=== PATIENT | female | born 1960 | race Caucasian/White ===

== ENCOUNTER → 2021-01-24 10:45 | Outpatient (BNVA) | payer MEDICARE, OTHER, MEDICAID, SELFPAY | PROVIDERS: PCP Family Medicine; Visit Provider Anesthesiology | DX: M17.12 Unilateral primary osteoarthritis, left knee (principal); E66.01 Morbid (severe) obesity due to excess calories; Z68.41 Body mass index [BMI] 40.0-44.9, adult | CPT/HCPCS: 99202 ==

== ENCOUNTER 2021-03-08 06:24 | Outpatient (REF) | payer MEDICARE, OTHER, MEDICAID, SELFPAY ==
--- NOTE | ~2021-03-08 | FL_ITS ---
EXAMINATION: XR FLUOROSCOPY WITH IMAGES CLINICAL INFORMATION: Primary osteoarthritis of left knee COMPARISON: None. TECHNIQUE: Fluoroscopy performed by Dr. Franklin. Fluoroscopy time: 0.3 minutes DAP: 3.13 Gycm2 Images: 1 image is saved (lateral view of knee) FL/FL guidance in treatment room FINDINGS AND IMPRESSION: The visualized bones have normal alignment. The lateral view of the left knee shows thin needles projecting over the region of the distal femur and proximal tibia. Please refer to the procedure report.
== END 2021-03-08 06:25 | disposition home or self-care (01) ==
LOC: HO.RADIR 06:24
PROVIDERS: Visit Provider Anesthesiology
DX: M17.12 Unilateral primary osteoarthritis, left knee (principal)
CPT/HCPCS: 64454

== ENCOUNTER 2021-03-15 08:58 | Outpatient (REF) | payer MEDICARE, OTHER, MEDICAID, SELFPAY ==
--- NOTE | ~2021-03-15 | XR_ITS ---
EXAMINATION: XR HAND, RIGHT CLINICAL INFORMATION: Pain in right wrist. COMPARISON: None TECHNIQUE: PA, lateral, and oblique views of the right hand. FINDINGS: The bones and soft tissues are normal. No fracture. Alignment is anatomic. Joint spaces are maintained. No erosions or soft tissue calcifications. XR/XR hand RT min 3V IMPRESSION: Normal right hand.
== END 2021-03-15 08:59 | disposition home or self-care (01) ==
LOC: HO.HOSX 08:58
PROVIDERS: Visit Provider Orthopaedic Surgery
DX: M67.441 Ganglion, right hand (principal)
CPT/HCPCS: 73130; 99202

== ENCOUNTER → 2021-03-16 10:18 | Outpatient (BNVA) | payer MEDICARE, OTHER, MEDICAID, SELFPAY | PROVIDERS: PCP Family Medicine; Visit Provider Anesthesiology | DX: M17.12 Unilateral primary osteoarthritis, left knee (principal); E66.01 Morbid (severe) obesity due to excess calories | CPT/HCPCS: 99212 ==

== ENCOUNTER 2021-04-07 08:38 | Outpatient (REF) | payer MEDICARE, OTHER, MEDICAID, SELFPAY ==
--- NOTE | ~2021-04-07 | XR_ITS ---
EXAMINATION: 1. STANDING RADIOGRAPHS OF THE BILATERAL KNEES. 2. LATERAL AND PATELLAR SUNRISE VIEWS OF THE LEFT KNEE. CLINICAL INFORMATION: Pain COMPARISON: None TECHNIQUE: Standing AP views of both knees were obtained in addition to 2 additional views of the left knee. FINDINGS: No fracture or dislocation of the left knee. Trace suprapatellar joint fluid of the left knee. There is mild narrowing of the medial joint space height of the left knee. Tiny tricompartmental marginal osteophytes are noted. No focal soft tissue swelling of the anterior knee. Standing AP view of the right knee demonstrates minimal narrowing of the medial joint space height with tiny osteophyte of the lateral joint compartment. XR/XR knee standing BI IMPRESSION: Mild degenerative changes of the left knee, primarily involving the medial compartment.
--- NOTE | ~2021-04-07 | XR_ITS ---
EXAMINATION: 1. STANDING RADIOGRAPHS OF THE BILATERAL KNEES. 2. LATERAL AND PATELLAR SUNRISE VIEWS OF THE LEFT KNEE. CLINICAL INFORMATION: Pain COMPARISON: None TECHNIQUE: Standing AP views of both knees were obtained in addition to 2 additional views of the left knee. FINDINGS: No fracture or dislocation of the left knee. Trace suprapatellar joint fluid of the left knee. There is mild narrowing of the medial joint space height of the left knee. Tiny tricompartmental marginal osteophytes are noted. No focal soft tissue swelling of the anterior knee. Standing AP view of the right knee demonstrates minimal narrowing of the medial joint space height with tiny osteophyte of the lateral joint compartment. XR/XR knee LT 2V IMPRESSION: Mild degenerative changes of the left knee, primarily involving the medial compartment.
== END 2021-04-07 08:39 | disposition home or self-care (01) ==
LOC: HO.HOSX 08:38
PROVIDERS: Visit Provider Orthopaedic Surgery
DX: M17.12 Unilateral primary osteoarthritis, left knee (principal)
CPT/HCPCS: 73560; 73565; 99202

== ENCOUNTER 2021-04-11 09:49 | Day surgery (SDC) | payer MEDICARE, OTHER, MEDICAID, SELFPAY ==
[2021-04-11 09:53] VITALS: BMI 44.6
[2021-04-11 10:00] VITALS: BP 141/84; PULSE 103; RESP 18; TEMP 36.1; O2SAT 97
[2021-04-11 11:44] VITALS: BP 148/89; PULSE 93; RESP 18; TEMP 36.6; O2SAT 97
--- NOTE | 2021-04-11 12:10 | P.OP_ITS ---
Operative Note Operative Note Date of Service: 04/11/21 Narrative: Operative Note Preop diagnosis: 1. [ ] DIP joint osteoarthritis and mucous cyst Postop diagnosis: 1. same Procedure: 1. [ ] mucous cyst excision 2. [ ] DIP joint arthrotomy and excision of osteophytes. Surgeon: Noreen Kohler MD Anesthesia: Digital block using 1% lidocaine with epinephrine Findings: mucous cyst, [ ] EBL: Less than 5 mL Tourniquet time: None Specimens: None Complications: None Disposition: Brought to recovery room in stable condition Plan: Follow-up for 7-10 days for wound check and suture removal Indications: The patient is 60 years old, with right index finger D IP joint osteoarthritis and a mucous cyst that has been unresponsive to nonoperative management. The risks and benefits of operative treatment including but not limited to risk of damage to blood vessels, nerves, tendons, infection, persistent pain, persistent symptoms, recurrence or possible need for additional surgery were discussed with the patient and the patient wishes to pro ceed with surgery. Procedure: Once consent was obtained a digital block was performed in the preop area using a combination of 1% lidocaine with epinephrine. The patient was then brought back to the operating suite and placed on the operative table in supine position. A tourniquet was applied to the proximal aspect of the right upper extremity and the limb was prepped and draped in a standard surgical fashion. Once assured that we had a good block, an L-shaped incision was made over the dorsal aspect of the right index finger distal phalanx. The incision was made through the skin to the subcutaneous tissues using a #15 blade. Careful dissection was made down to the level of the mucous cyst and extensor mechanism using iris scissors. the mucous cyst measured about 3 mm in diameter, was distal to the D IP joint and just radial of the midline. The cyst was filled with clear viscous fluid consistent with a ganglion. It was dissected free from the surrounding tissues and removed from the finger. An arthrotomy was performed on the Radial side of the extensor mechanism at the D IP joint. The periarticular osteophytes were excised using a rongeur. Once satisfied, the wound was copiously irrigated with normal saline and hemostasis was obtained with a brief period of local pressure. The skin edges were reapproximated with some 5.0 Prolene suture material and a sterile dressing was applied. The patient appears to have tolerated the procedure well and with no complications. All digits were well vascularized at the conclusion of the case.
--- NOTE | 2021-04-11 12:10 | MHC.SHP ---
Pre-Procedural Eval Section A Date of Service: 04/11/21 The patient is an INPATIENT: No Changes since office visit: No Cold of Flu in the past 2 weeks, No New Medical Problems, No Changes in Medication and No Patient answered all questions The History & Physical has been completed within 30 days and I have reviewed it.: Yes Section B Chief Complaint: ganglion Allergies: Allergies Allergy/AdvReac Type Severity Reaction Status Date / Time tetracycline [TETRACYCLINE] Allergy Severe SYNCOPE, Verified 03/16/21 10:47 faintning spells Sulfa (Sulfonamide Allergy Unknown VOMITING Verified 03/16/21 10:47 Antibiotics) [SULFA (SULFONAMIDE ANTIBIOTICS)] Plan I have reviewed the history and physical and performed a pertinent physical examination on my patient. No changes have occurred unless specified.
== END 2021-04-11 12:04 | disposition home or self-care (01) ==
PROVIDERS: PCP Family Medicine; Visit Provider Orthopaedic Surgery
PROC: (CPT 26160; principal; 2021-04-11 11:10)
DX: M67.441 Ganglion, right hand (principal); M19.041 Primary osteoarthritis, right hand; E66.01 Morbid (severe) obesity due to excess calories; Z68.41 Body mass index [BMI] 40.0-44.9, adult; Z88.2 Allergy status to sulfonamides; Z88.1 Allergy status to other antibiotic agents
CPT/HCPCS: 26160

== ENCOUNTER 2021-04-12 06:07 | Outpatient (REF) | payer MEDICARE, OTHER, MEDICAID, SELFPAY | END 2021-04-12 06:08 | disposition home or self-care (01) | LOC: HO.RADIR 06:07 | PROVIDERS: Visit Provider Anesthesiology | DX: Z13.89 Encounter for screening for other disorder (principal) ==

== ENCOUNTER → 2021-04-26 12:07 | Outpatient (BNVA) | payer MEDICARE, OTHER, MEDICAID, SELFPAY | PROVIDERS: PCP Family Medicine; Visit Provider Physician Assistant | DX: Z48.89 Encounter for other specified surgical aftercare (principal); Z87.39 Personal history of other diseases of the musculoskeletal system and connective tissue | CPT/HCPCS: 99212 ==

== ENCOUNTER → 2021-05-24 14:30 | Outpatient (BNVA) | payer MEDICARE, OTHER, SELFPAY | PROVIDERS: PCP Family Medicine; Visit Provider Orthopaedic Surgery | DX: Z47.89 Encounter for other orthopedic aftercare (principal); Z87.39 Personal history of other diseases of the musculoskeletal system and connective tissue | CPT/HCPCS: 99212 ==

== ENCOUNTER 2021-07-21 12:30 | Outpatient (REF) | payer MEDICARE, OTHER, MEDICAID, SELFPAY ==
--- NOTE | ~2021-07-21 | XR_ITS ---
EXAMINATION: XR SHOULDER, LEFT CLINICAL INFORMATION: Left shoulder pain. COMPARISON: None TECHNIQUE: AP, scapular Y, and axillary views of the left shoulder. FINDINGS: Mild glenohumeral joint space narrowing with small marginal osteophytes. Small acromioclavicular marginal osteophytes. Prominent subacromial spurs. No acute fracture or dislocation. No lytic or blastic osseous lesion. XR/XR shoulder LT min 2V IMPRESSION: Moderate glenohumeral osteoarthritis. Mild acromioclavicular osteoarthritis with prominent subacromial spurs.
== END 2021-07-21 12:31 | disposition home or self-care (01) ==
LOC: HO.HOSX 12:30
PROVIDERS: Visit Provider Orthopaedic Surgery
DX: M75.52 Bursitis of left shoulder (principal)
CPT/HCPCS: 20600; 20605; 20610; 73030; 99212; J1100

== ENCOUNTER 2023-02-13 14:57 | Outpatient (AMB) | payer MEDICARE, OTHER, SELFPAY ==
--- NOTE | 2023-02-13 14:59 | A.OFFVIS_ITS ---
Intake Intake Visit Reasons: New Prob- left finger cyst Intake Note: Suze 62 yr old female presents today for a new problem visit for left index finger. States she has a small bump she noticed it about 3-4 months ago with slight increase in size. Denies numbness and tingling. S/P Right Idex Finger Mucous Cyst Exc. 04/11/21 AR. Allergies tetracycline [TETRACYCLINE] Allergy (Severe, Verified 02/13/23 15:09) SYNCOPE, faintning spells Sulfa (Sulfonamide Antibiotics) [SULFA (SULFONAMIDE ANTIBIOTICS)] Allergy (Unknown, Verified 02/13/23 15:09) VOMITING HPI New Prob- left finger cyst HPI Details Suze is a 62 year old right hand dominant woman who presents with complaints of a left index finger mass. She says this has been present for ~4 months and has slightly increased in size. She says it tends to hurt only when she strikes it against an object. She denies any numbness or tingling. She is S/P right index finger DIP joint mucous cyst excision, DOS: 04/01/21 [facility] Medical History History of kidney infection Morbid obesity Osteoarthritis of left knee Surgical History History of kidney surgery History of partial hysterectomy Hx laparoscopic cholecystectomy Social History Alcohol intake: never Patient Tobacco Use Status: Never used Tobacco Second Hand Smoke Exposure: No Current occupational status: unemployed and retired Current occupation: right handed Review of Systems Const All systems reviewed & are unremarkable except as noted in HPI and below Physical Exam Const General: no acute distress and alert Orientation/consciousness: patient oriented x3 Neuro General: patient oriented x3 Extrem Other: Evaluation of Left Upper Extremity: The patient is alert, oriented, and in no acute distress Neuro: Median, Ulnar, Radial nerves motor and sensory intact and sensation is normal to the tips of all digits Vascular: Cap refill brisk ROM: She can make a fist and extend all her digits She has a mass , consistent with a small mucous cyst, on the dorsal radial aspect of her left index finger, just distal to the DIP joint. This measures ~3mm in diameter. Psych Appearance: grossly normal Affect: normal affect Attitude: cooperative Assessment & Plan Assessment & Plan (1) Mucous cyst of digit of left hand: Code(s): M67.442 - Ganglion, left hand Plan Assessment & Plan: 1. Left index finger mucous cyst Measuring ~3mm in diameter, on the dorsal radial aspect just distal to the DIP joint I educated her about this condition I discussed operative and non-operative treatment options The patient would like to proceed with surgery The risks and benefits of operative treatment were discussed with the patient and the patient wishes to proceed with surgery. These risks include, but are not limited to risk of damage to blood vessels, nerves, tendons, infection, recurrence, incomplete relief of preoperative symptoms, persistent pain, possible need for further surgery and the risks associated with regional blocks and anesthesia. The plan is to take the patient to the operating room sometime in the next few weeks for the following procedures: 1. Left index finger excision of mass, under local All of the preoperative paperwork including the consent was filled out today. All the patient's questions were answered. The patient understands that they will be contacted by our surgery tech soon to schedule this procedure She denies Diabetes, blood thinners, asthma, heart, lung, kidney issues Scribed for Noreen Kohler MD by Navjot Cabrera, durable medical equipment technician, on 02/13/23 at 3:40 PM, EST. Coding Level of Care Code Est Pt Level 4 (03470) Diagnoses Mucous cyst of digit of left hand M67.442
== END 2023-02-13 15:49 | disposition home or self-care (01) ==
PROVIDERS: PCP Family Medicine; Visit Provider Orthopaedic Surgery
DX: M67.442 Ganglion, left hand (principal)
CPT/HCPCS: 99214

== ENCOUNTER → 2023-02-13 14:57 | Outpatient (BNVA) | payer MEDICARE, OTHER, MEDICAID, SELFPAY | PROVIDERS: PCP Family Medicine; Visit Provider Orthopaedic Surgery | DX: M67.442 Ganglion, left hand (principal) | CPT/HCPCS: 99212 ==

== ENCOUNTER 2023-07-18 14:23 | Outpatient (AMB) | payer MEDICARE, MEDICAID, OTHER, SELFPAY ==
--- NOTE | 2023-07-18 14:31 | A.OFFVIS_ITS ---
Intake Intake Visit Reasons: OV-left finger injury/pain Intake Note: Suze 62 yr old female presents today for her left index finger. States she was suppose to have surgery on her Lt IF Cyst Exc on 05/10/23 but cancelled it because it was feeling better after she accidentally banged her finger on her fridge, and now the pain has come back and wants to be checked again States she is having more pain. Allergies tetracycline [TETRACYCLINE] Allergy (Severe, Verified 07/18/23 14:34) SYNCOPE, faintning spells Sulfa (Sulfonamide Antibiotics) [SULFA (SULFONAMIDE ANTIBIOTICS)] Allergy (Unknown, Verified 07/18/23 14:34) VOMITING HPI OV-left finger injury/pain HPI Details Suze is a 62 year old right hand dominant woman who returns with complaints of worsening left index finger pain. She has a mucous cyst on her left index finger DIP joint, which was scheduled for removal on . She cancelled this surgery as her finger was feeling better after she struck it with the fridge door. She now complains that her pain has returned and she would like to discuss treatment options. This mass has been present for ~9 months now. She denies any numbness or tingling. [facility] Medical History History of kidney infection Morbid obesity Osteoarthritis of left knee Surgical History History of kidney surgery History of partial hysterectomy Hx laparoscopic cholecystectomy Social History Alcohol intake: never Patient Tobacco Use Status: Never used Tobacco Second Hand Smoke Exposure: No Current occupational status: unemployed and retired Current occupation: right handed Physical Exam Const General: no acute distress and alert Orientation/consciousness: patient oriented x3 Neuro General: patient oriented x3 Extrem Other: Evaluation of Left Upper Extremity: The patient is alert, oriented, and in no acute distress Neuro: Median, Ulnar, Radial nerves motor and sensory intact and sensation is normal to the tips of all digits Vascular: Cap refill brisk ROM: She can make a fist and extend all her digits She has a small mass, consistent with a small mucous cyst, on the dorsal radial aspect of her left index finger, just distal to the DIP joint. This measures ~3mm in diameter. This was rather flat, and really only visible when her finger was brought into flexion and the skin was stretched over it. She did have some mild tenderness right over this small mass. Psych Appearance: grossly normal Affect: normal affect Attitude: cooperative Assessment & Plan Assessment & Plan (1) Mucous cyst of digit of left hand: Code(s): M67.442 - Ganglion, left hand Plan Assessment & Plan: 1. Left index finger likely reoccurrence of mucous cyst Measuring ~3mm in diameter, on the dorsal radial aspect just distal to the DIP joint Rather flat at this point and Difficult to visualize until the fingers brought into flexion. I educated her about this condition I discussed operative and non-operative treatment options This is a small mass that would be difficult to remove operatively at this time I recommend she massage over her mass to reduce the risk of hypersensitivity If her mass increases in size she can follow up to discuss operative treatment options. She will follow up in 6-8 weeks to see how she is doing Scribed for Noreen Kohler MD by Navjot Cabrera, medical technologist chief, on 07/18/23 at 2:40 PM, EST. Coding Level of Care Code Est Pt Level 3 (62677) Diagnoses Mucous cyst of digit of left hand M67.442
== END 2023-07-18 14:46 | disposition home or self-care (01) ==
PROVIDERS: PCP Family Medicine; Visit Provider Orthopaedic Surgery
DX: M67.442 Ganglion, left hand (principal)
CPT/HCPCS: 99213

== ENCOUNTER → 2023-07-18 14:23 | Outpatient (BNVA) | payer MEDICARE, MEDICAID, OTHER, SELFPAY | PROVIDERS: PCP Family Medicine; Visit Provider Orthopaedic Surgery | DX: M67.442 Ganglion, left hand (principal) | CPT/HCPCS: 99212 ==

== ENCOUNTER 2023-09-11 15:40 | Outpatient (AMB) | payer MEDICARE, MEDICAID, OTHER, SELFPAY ==
--- NOTE | 2023-09-11 15:50 | MHC.OFFVIS ---
Intake Visit Reasons: OV-left index finger mucous cyst Intake Note: Suze 63 yr old female presents today for her follow up visit for her left index finger mucous cyst. States her cyst burst about 2 weeks ago. She did not see any thing drained out but now her cyst has grown back and she has noticed it has increase in size. She would like to discuss surgery. Allergies tetracycline [TETRACYCLINE] Allergy (Severe, Verified 09/11/23 15:57) SYNCOPE, faintning spells Sulfa (Sulfonamide Antibiotics) [SULFA (SULFONAMIDE ANTIBIOTICS)] Allergy (Unknown, Verified 09/11/23 15:57) VOMITING HPI HPI OV-left index finger mucous cyst: Details: Suze is a 62 year old right hand dominant woman who returns to discuss her left index finger mucous cyst She has a mucous cyst on her left index finger DIP joint, which was scheduled for removal on 05/10/23. She cancelled this surgery as her finger was feeling better after she struck it with the fridge door. She says her cyst burst ~2 weeks ago again, and has once again returned. She complains of pain and wants to discuss surgery. This mass first appeared in ~09/2022. She denies any numbness or tingling. [facility] Medical History History of kidney infection Morbid obesity Osteoarthritis of left knee Surgical History History of kidney surgery History of partial hysterectomy Hx laparoscopic cholecystectomy Social History Alcohol intake: never Patient Tobacco Use Status: Never used Tobacco Second Hand Smoke Exposure: No Current occupational status: unemployed and retired Current occupation: right handed Physical Exam Const General: no acute distress and alert Orientation/consciousness: patient oriented x3 Neuro General: patient oriented x3 Extrem Other: Evaluation of Left Upper Extremity: The patient is alert, oriented, and in no acute distress Neuro: Median, Ulnar, Radial nerves motor and sensory intact and sensation is normal to the tips of all digits Vascular: Cap refill brisk ROM: She can make a fist and extend all her digits She has a small mass, consistent with a small mucous cyst, on the dorsal radial aspect of her left index finger, just distal to the DIP joint. This measures ~3-4mm in diameter. She did have some mild tenderness right over this small mass. Psych Appearance: grossly normal Affect: normal affect Attitude: cooperative Assessment & Plan Assessment & Plan (1) Mucous cyst of digit of left hand: Code(s): M67.442 - Ganglion, left hand Category: Medical Plan Assessment & Plan: 1. Left index finger likely reoccurrence of mucous cyst Measuring ~3-4mm in diameter, on the dorsal radial aspect just distal to the DIP joint I educated her about this condition I discussed operative and non-operative treatment options The patient would like to proceed with surgery The risks and benefits of operative treatment were discussed with the patient and the patient wishes to proceed with surgery. These risks include, but are not limited to risk of damage to blood vessels, nerves, tendons, infection, recurrence, incomplete relief of preoperative symptoms, persistent pain, possible need for further surgery and the risks associated with regional blocks and anesthesia. The plan is to take the patient to the operating room sometime in the next few weeks for the following procedures: 1. Left index finger mucous cyst excision, under local All of the preoperative paperwork including the consent was reviewed today. All the patient's questions were answered. The patient understands that they will be contacted by our corset maker soon to schedule this procedure She denies Diabetes, blood thinners, asthma, heart, lung, kidney issues Scribed for Noreen Kohler MD by Navjot Cabrera, medical driver, on 09/11/23 at 3:55 PM, EST. Coding Level of Care Code Est Pt Level 4 (34537) Diagnoses Mucous cyst of digit of left hand M67.442
== END 2023-09-11 16:21 | disposition home or self-care (01) ==
PROVIDERS: PCP Family Medicine; Visit Provider Orthopaedic Surgery
DX: M67.442 Ganglion, left hand (principal)
CPT/HCPCS: 99214

== ENCOUNTER → 2023-09-11 15:40 | Outpatient (BNVA) | payer MEDICARE, MEDICAID, OTHER, SELFPAY | PROVIDERS: PCP Family Medicine; Visit Provider Orthopaedic Surgery | DX: M67.442 Ganglion, left hand (principal) | CPT/HCPCS: 99212 ==

== ENCOUNTER 2023-10-04 08:57 | Day surgery (SDC) | payer MEDICARE, OTHER, MEDICAID, SELFPAY ==
[2023-10-04 09:08] VITALS: BMI 46.5
--- NOTE | 2023-10-04 10:11 | MHC.SHP ---
Pre-Procedural Eval Section A - 24 Hr Update-Section A only Date of Service: 10/04/23 The patient is an INPATIENT: No Changes since office visit: No Cold of Flu in the past 2 weeks, No New Medical Problems, No Changes in Medication and No Patient answered all questions The patient has been examined within 24 hours of the surgical procedure. The History & Physical has been completed within 30 days and I have reviewed it.: Yes Section B - Complete if H&P > 30 days Chief Complaint: Localized swelling, mass and lump, left upper limb Allergies: Allergies Allergy/AdvReac Type Severity Reaction Status Date / Time tetracycline [TETRACYCLINE] Allergy Severe SYNCOPE, Verified 10/04/23 09:18 faintning spells Sulfa (Sulfonamide AdvReac Unknown VOMITING Verified 10/04/23 09:18 Antibiotics) [SULFA (SULFONAMIDE ANTIBIOTICS)] morphine AdvReac Vomiting Verified 10/04/23 09:19 Exam Exam Comment: Left index finger mucous cyst Plan Diagnosis/Plan: Unchanged I have reviewed the history and physical and performed a pertinent physical examination on my patient. No changes have occurred unless specified. Time Spent With Patient Time: Total time managing care of this patient today ____ minutes.
--- NOTE | 2023-10-04 10:11 | W.PM.OPN ---
Operative Note Operative Note Date of Service: 10/04/23 Narrative: Operative Note Preop diagnosis: 1. Left index finger DIP joint osteoarthritis and mucous cyst Postop diagnosis: 1. same Procedure: 1. Left index finger mucous cyst excision 2. Left index finger DIP joint arthrotomy and excision of osteophytes. Surgeon: Noreen Kohler MD Anesthesia: Digital block using 1% lidocaine with epinephrine Findings: mucous cyst EBL: Less than 5 mL Tourniquet time: None Specimens: None Complications: None Disposition: Brought to recovery room in stable condition Plan: Follow-up for 7-10 days for wound check and suture removal, and to check pathology Indications: The patient is 63 years old, with left index finger D IP joint osteoarthritis and a mucous cyst that has been unresponsive to nonoperative management. The risks and benefits of operative treatment including but not limited to risk of damage to blood vessels, nerves, tendons, infection, persistent pain, persistent symptoms, recurrence or possible need for additional surgery were discussed with the patient and the patient wishes to proceed with surgery. Procedure: Once consent was obtained a digital block was performed in the preop area using a combination of 1% lidocaine with epinephrine. The patient was then brought back to the operating suite and placed on the operative table in supine position. A tourniquet was applied to the proximal aspect of the left upper extremity and the limb was prepped and draped in a standard surgical fashion. Once assured that we had a good block, an L-shaped incision was made over the dorsal aspect of the left index finger distal phalanx. The incision was made through the skin to the subcutaneous tissues using a #15 blade. Careful dissection was made down to the level of the mucous cyst and extensor mechanism using iris scissors. I made an ulnarly based flap, and elevated it to expose the mucous cyst. The cyst was approximately 6 mm in diameter and filled with clear viscous fluid consistent with a ganglion. It was dissected free from the surrounding tissues and removed from the finger. An arthrotomy was performed on the radial side of the extensor mechanism at the D IP joint. The periarticular osteophytes were excised using a rongeur. Once satisfied, the wound was copiously irrigated with normal saline and hemostasis was obtained with a brief period of local pressure. The skin edges were reapproximated with some 5.0 Prolene suture material and a sterile dressing was applied. The patient appears to have tolerated the procedure well and with no complications. All digits were well vascularized at the conclusion of the case.
[2023-10-04 11:41] VITALS: BP 148/59; PULSE 60; RESP 20; O2SAT 95
== END 2023-10-04 11:48 | disposition home or self-care (01) ==
PROVIDERS: PCP Family Medicine; Visit Provider Orthopaedic Surgery
PROC: (CPT 26160; principal; 2023-10-04 10:10)
DX: M67.442 Ganglion, left hand (principal); M19.042 Primary osteoarthritis, left hand; Z88.8 Allergy status to other drugs, medicaments and biological substances
CPT/HCPCS: 26160; 88304; J0171

== ENCOUNTER → 2023-10-04 08:57 | Outpatient (BNV) | payer MEDICARE, OTHER, MEDICAID, SELFPAY | PROVIDERS: PCP Family Medicine; Visit Provider Orthopaedic Surgery | DX: M67.442 Ganglion, left hand (principal); M19.042 Primary osteoarthritis, left hand | CPT/HCPCS: 26160 ==

== ENCOUNTER 2023-10-17 13:39 | Outpatient (AMB) | payer MEDICARE, MEDICAID, OTHER, SELFPAY ==
--- NOTE | 2023-10-17 13:43 | MHC.OFFVIS ---
Vital Signs 10/17/23 13:46 Handedness Right Intake Visit Reasons: PO LT IF mucous exc 10/04/23 AR Intake Note: Suze 63 year old right hand dominant female presents today for her post operative visit for her left index finger mucous exc 10/04/23 AR. States she has mild numbness on finger tip but is doing well over all. Dressing was removed 5 days after surgery and states she has kept her finger clean. Sutures removed and steri strips applied. Allergies tetracycline [TETRACYCLINE] Allergy (Severe, Verified 10/17/23 13:45) SYNCOPE, faintning spells oxycodone Adverse Reaction (Intermediate, Verified 10/17/23 13:45) Stomach Upset Sulfa (Sulfonamide Antibiotics) [SULFA (SULFONAMIDE ANTIBIOTICS)] Adverse Reaction (Unknown, Verified 10/17/23 13:45) VOMITING morphine Adverse Reaction (Verified 10/17/23 13:45) Vomiting HPI HPI PO LT IF mucous exc 10/04/23 AR: Details: Suze is a 62 year old right hand dominant woman who returns S/P left index finger mucous cyst excision, DIP joint arthrotomy, & excision of osteophytes, DOS: 10/04/23. She says she is doing well and denies any pain. She reports having some numbness in the central pad of the finger, that seems to be new.. She says she had an injury as a child when her hand went through a glass window. [facility] Medical History History of kidney infection Morbid obesity Osteoarthritis of left knee Surgical History History of kidney surgery History of partial hysterectomy Hx laparoscopic cholecystectomy Social History Alcohol intake: never Patient Tobacco Use Status: Never used Tobacco Second Hand Smoke Exposure: No Current occupational status: unemployed and retired Current occupation: right handed Review of Systems Const All systems reviewed & are unremarkable except as noted in HPI and below Physical Exam Const General: no acute distress and alert Orientation/consciousness: patient oriented x3 Neuro General: patient oriented x3 Extrem Other: The patient was alert oriented and in no acute distress The incision is healing well with no erythema drainage or evidence of infection. Sutures removed and Steri-Strips applied She can make a fist and extend all her digits Numbness to the central tip of the index finger, with more normal sensation to the volar radial and volar ulnar pad of the finger. This seems to be new to her. She says it does not bother her a lot.. Normal sensation to all other digits. Cap refill is brisk Pathology report 10/04/23 Diagnosis Soft tissue, left index finger cyst, excision: Fibrovascular tissue with cystic and myxoid degeneration, consistent with digital mucous (myxoid) cyst Psych Appearance: grossly normal Affect: normal affect Attitude: cooperative Assessment & Plan Assessment & Plan (1) Mucous cyst of digit of left hand: Code(s): M67.442 - Ganglion, left hand Category: Medical Plan Assessment & Plan: 1. Left index finger mucous cyst, S/P excision, DIP joint arthrotomy & excision of osteophytes DOS: 10/04/23 The patient appears to be doing well post-operatively I educated her about the post-operative course I explained the signs and symptoms of infection, if the patient develops any new or worsening erythema, drainage, pain, or warmth they should contact the clinic or attend the ED. I discussed activity modifications, she is to lift nothing heavier than a cellphone for the next two weeks She will perform gentle ROM exercises at home She should avoid any underwater activities for the next 5 days She should gently massage about the incision site to reduce the risk of hypersensitivity She can follow up prn Scribed for Noreen oKhler MD by Navjot Cabrera, rishabh craft, on 10/17/23 at 1:55 PM, EST. Scribe Plan - Not visible on output: Scribed for Noreen Kohler MD by rishabh Delcid scribe, on [ ] at [ ], EST. Coding Level of Care Code Global (52839) Diagnoses Mucous cyst of digit of left hand M67.442
== END 2023-10-17 14:01 | disposition home or self-care (01) ==
PROVIDERS: PCP Family Medicine; Visit Provider Orthopaedic Surgery
DX: M67.442 Ganglion, left hand (principal)
CPT/HCPCS: 99024

== ENCOUNTER → 2023-10-17 13:39 | Outpatient (BNVA) | payer MEDICARE, MEDICAID, OTHER, SELFPAY | PROVIDERS: PCP Family Medicine; Visit Provider Orthopaedic Surgery | DX: Z47.89 Encounter for other orthopedic aftercare (principal); Z98.890 Other specified postprocedural states | CPT/HCPCS: 99212 ==

== ENCOUNTER 2024-01-26 20:03 | Observation (INO) | payer MEDICARE, OTHER, MEDICAID, SELFPAY ==
--- NOTE | ~2024-01-26 | MR_ITS ---
EXAMINATION: MR BRAIN WITHOUT CONTRAST CLINICAL INFORMATION: Diplopia COMPARISON: CTA head and neck on 01/26/2024 TECHNIQUE: MRI of the brain was obtained using routine sequences without contrast. FINDINGS: No acute intracranial hemorrhage or infarct. No edema, midline shift or hydrocephalus. No acute extra-axial fluid collections. The osseous structures are unremarkable. The pituitary gland, pineal gland and remaining midline structures are unremarkable. No orbital pathology. The paranasal sinuses and mastoid air cells are clear. MR/MR head/brain wo con IMPRESSION: Unremarkable MRI brain. No acute intracranial abnormality. Electronically signed by: Koby Minor MD 01/27/2024 10:37 AM EDT
--- NOTE | ~2024-01-26 | CT_ITS ---
EXAMINATION: CTA NECK WITH CONTRAST (STROKE) CTA BRAIN WITH CONTRAST (STROKE) CLINICAL INFORMATION: Suspect acute stroke. COMPARISON: None available. TECHNIQUE: CTA of the head and neck was performed in the axial plane from the mediastinum to the skull vertex using 70 mL Omnipaque 350 intravenous contrast. Additional reformatted multiplanar images including maximum intensity projection MIP images are generated on the CT workstation. This CT examination was performed using dose optimization techniques as appropriate, variously including the following: *Automated exposure control *Adjustment of mA and/or kV according to patient size (this includes techniques or standardized protocols for targeted exams where dose is matched to indication/reason for exam; i.e. extremities or head) *Use of iterative reconstruction technique DLP: 1503 mGy-cm FINDINGS: The degree of stenosis determined by criteria similar to NASCET. CTA NECK: Three-vessel aortic arch. The innominate and bilateral subclavian arteries are patent. The origins and cervical segments of the common carotid arteries as well as the common carotid artery bifurcations are patent. The cervical segments of the internal carotid arteries are also patent bilaterally. Nondominant right vertebral artery. The origins and cervical segments of the vertebral arteries are patent bilaterally. No hemodynamically significant stenosis, dissection, or aneurysm. The visualized branches of the external carotid arteries are unremarkable. CTA HEAD: Mild to moderate atherosclerotic calcifications of the bilateral carotid siphons. Anterior circulation: The petrous, cavernous, supraclinoid segments of the internal carotid arteries are patent bilaterally. The major branches of the anterior and middle cerebral arteries as well as anterior communicating artery complex are patent. No large vessel occlusion, saccular aneurysm, or dissection. Posterior circulation: The intracranial vertebral arteries are patent bilaterally. The basilar artery is normal in caliber and course. The posterior cerebral and superior cerebellar arteries arise normally from the basilar summit. No aneurysm. On delayed imaging, the venous structures demonstrate normal contrast opacification. No filling defect. No abnormal intraparenchymal enhancement. Soft tissues: No suspicious neck mass or cervical adenopathy. Lungs: Clear. Bones: No acute osseous abnormality. No lytic or blastic osseous lesions. Multilevel degenerative changes of the visualized spine. CT/CT angio head neck stroke IMPRESSION: CTA head demonstrates no large vessel occlusion, saccular aneurysm, or dissection. CTA neck demonstrates no hemodynamically significant stenosis, dissection, or aneurysm. Electronically signed by: Koby Minor MD 01/26/2024 09:23 PM EDT
--- NOTE | ~2024-01-26 | XR_ITS ---
EXAMINATION: XR CHEST CLINICAL INFORMATION: Stroke symptoms COMPARISON: 04/19/2018 TECHNIQUE: Frontal view of the chest was obtained. FINDINGS: There is some minimal atelectasis seen at the left lung base but otherwise, no significant abnormality is noted involving the heart, lungs, mediastinum, bony thorax or soft tissues. XR/XR chest 1V IMPRESSION: No acute intrathoracic disease. Electronically signed by: Dat Richards MD 01/26/2024 09:49 PM EDT RP
--- NOTE | ~2024-01-26 | CT_ITS ---
EXAMINATION: CT HEAD WITHOUT CONTRAST (STROKE PROTOCOL) CLINICAL INFORMATION: Stroke protocol. Altered mental status. COMPARISON: None available. TECHNIQUE: Contiguous axial imaging was performed from the skull base to vertex without intravenous administration of contrast. This CT examination was performed using dose optimization techniques as appropriate, variously including the following: *Automated exposure control *Adjustment of mA and/or kV according to patient size (this includes techniques or standardized protocols for targeted exams where dose is matched to indication/reason for exam; i.e. extremities or head) *Use of iterative reconstruction technique DLP: 731 mGy-cm FINDINGS: No intracranial hemorrhage, large infarction, or mass lesion is seen. No extra-axial collection is appreciated. The ventricles are normal in size and configuration without evidence of hydrocephalus. The visualized paranasal sinuses and mastoid air cells are clear. CT/CT head for stroke IMPRESSION: No acute intracranial finding. Dr Smith was directly informed of the findings by telephone at 8:25 PM on January 26, 2024. Electronically signed by: Roque Green MD 01/26/2024 08:25 PM EDT
--- NOTE | 2024-01-26 20:10 | ECG_ITS ---
Test Reason : ?STROKE Blood Pressure : / mmHG Vent. Rate : 094 BPM Atrial Rate : 094 BPM P-R Int : 164 ms QRS Dur : 080 ms QT Int : 366 ms P-R-T Axes : 066 022 049 degrees QTc Int : 457 ms Normal sinus rhythm Normal ECG When compared with ECG of 21-JUL-2018 17:41, T wave inversion no longer evident in Anterior leads Referred By: Toni Smith Electronically Signed By:CRISTIAN ARROYO
[2024-01-26 20:17] VITALS: BP 140/100; PULSE 104; O2SAT 97; BMI 45.7
[2024-01-26 20:19] LABS: Glucose, Whole Blood 124 mg/dL (60-115)
--- NOTE | 2024-01-26 20:19 | PC.NURSE ---
on arrival dr hernandez to assess on ems stretcher. iv established to R. forearm. poc 124. to ct scan after obtaining weight.
[2024-01-26] MEDS: iohexoL 350 MG/ML 100 ML INFUS..BTL IV (20:38)
--- NOTE | 2024-01-26 20:38 | PC.NURSE ---
pt to ed12 at this time. placed on heart monitor. obtaining ekg, labs, and poc pturbano. at bedside.
[2024-01-26 20:40] VITALS: BP 121/44; PULSE 96; RESP 16; TEMP 36.8; O2SAT 99
[2024-01-26 21:01] LABS: MANUAL DIFF FLAG NO
[2024-01-26 21:03] LABS: Basophils Absolute Auto 0.1 X10*3/uL (0.0-0.2); Basophils Percent Auto 0.9 % (0-2); Eosinophils Absolute Auto 0.2 X10*3/uL (0.0-0.4); Hematocrit 42.5 % (37.0-47.0); Hemoglobin 14.1 g/dl (12.0-16.0); Imm Gran Abs Auto 0.06 X10*3/uL (0.00-0.03); Imm Gran Pct Auto 0.5 % (0.0-0.4); Lymphocytes Absolute Auto 4.9 X10*3/uL (1.2-4.9); Lymphocytes Percent Auto 41.8 % (20-40); Mean Corpuscular HGB Conc 33.2 g/dl (31.0-35.0); Mean Corpuscular Hemoglobin 28.8 pg (27.0-33.0); Mean Corpuscular Volume 86.7 fL (80.0-98.0); Mean Platelet Volume 11.6 fL (9.4-12.3); Monocytes Absolute Auto 0.6 X10*3/uL (0.1-1.2); Monocytes Percent Auto 5.3 % (2-11); Neutrophils Absolute Auto 5.8 x10*3/uL (2.0-8.3); Neutrophils Percent Auto 49.5 % (45-73); Platelet Count 226 X10*3/uL (160-400); Red Cell Distribution Width 13.8 % (11.0-16.0); White Blood Count 11.7 X10*3/uL (4.8-10.8)
[2024-01-26 21:08] LABS: INTERNATIONAL NORM RATIO 0.9 (0.9-1.1); Prothrombin Time 10.2 SEC (10.9-12.4)
--- NOTE | 2024-01-26 21:10 | ED_ITS ---
HPI - Neuro Symptoms/Deficit General Chief Complaint: Stroke Stated Complaint: stroke alert Time Seen by Provider: 01/26/24 20:10 Source: patient and EMS Mode of arrival: EMS Limitations: no limitations History of Present Illness ED Provider: DR. Smith HPI Narrative: a 63-year-old female came in by ambulance for evaluation of a sudden visual loss in the right eye and feeling dizzy with the room spinning around her started 40 minute before arrival to the emergency department, patient stated that symptoms with improvement and resolution of her symptoms then shortly after patient started to see double with the right eye described as vertical diplopia and mostly if she looks straight with her right eye patient stated that diplopia disappear if close 1 of her eyes, otherwise no headache, no weakness, no numbness, no head injury, no eye injury, no history of retinal detachment. Patient is not taking anticoagulation medication. Related Data Home Medications ?Medication ?Instructions ?Recorded ?Confirmed cholecalciferol (vitamin D3) PO 04/07/21 omega-3 acid ethyl esters PO 04/07/21 Bacillus coagulans-inulin 1 1 cap PO DAILY 10/04/23 10/04/23 billion cell-250 mg capsule (Probiotic with Prebiotic) Culturelle PO DAILY 10/04/23 aspirin 81 mg tablet 81 mg PO DAILY 10/04/23 10/04/23 atorvastatin 10 mg tablet 10 mg PO DAILY 10/04/23 10/04/23 lisinopril 10 mg tablet 10 mg PO DAILY 10/04/23 10/04/23 meloxicam 15 mg tablet 15 mg PO DAILY 10/04/23 10/04/23 metformin 500 mg tablet 500 mg PO BID 10/04/23 10/04/23 milk thistle 500 mg capsule 500 mg PO DAILY 10/04/23 10/04/23 pentoxifylline 400 mg 400 mg PO BID 10/04/23 10/04/23 tablet,extended release quetiapine 25 mg tablet 25 mg PO BEDTIME 10/04/23 10/04/23 vitamin B complex tab PO 10/04/23 Allergies Allergy/AdvReac Type Severity Reaction Status Date / Time tetracycline [TETRACYCLINE] Allergy Severe SYNCOPE, Verified 01/26/24 20:19 faintning spells oxycodone AdvReac Intermediate Stomach Verified 01/26/24 20:19 Upset Sulfa (Sulfonamide AdvReac Unknown VOMITING Verified 01/26/24 20:19 Antibiotics) [SULFA (SULFONAMIDE ANTIBIOTICS)] morphine AdvReac Vomiting Verified 01/26/24 20:19 Review of Systems 2 Review of Systems: All other systems are reviewed and are negative Constitutional: Reports as per HPI and Reports no additional constitutional complaints Eyes: Reports as per HPI and Reports no additional eye complaints Reports system reviewed and no additional complaints, except as documented Cardiovascular: Reports as per HPI and Reports no additional cardiovascular complaints Respiratory: Reports as per HPI and Reports no additional respiratory complaints Gastrointestinal: Reports as per HPI and Reports no additional gastrointestinal complaints Genitourinary: Reports no additional female genitourinary complaints Musculoskeletal: Reports no additional musculoskeletal complaints Skin/Breast: Reports system reviewed and no additional complaints, except as docu Psychiatric: Reports no additional psychiatric complaints Endocrine: Reports no additional endocrine complaints Hematologic/Lymphatic: Reports no additional hematologic/lymphatic complaints Allergic/Immunologic: Reports no additional allergic/immunologic complaints Reports system reviewed and no additional complaints, except as documented and Reports Abnormal speech present [facility] Past Medical History Medical History History of kidney infection Morbid obesity Osteoarthritis of left knee Surgical History History of kidney surgery History of partial hysterectomy Hx laparoscopic cholecystectomy Social History Social History Alcohol intake: never Patient Tobacco Use Status: Never used Tobacco Smoked in Last 30 Days: No Second Hand Smoke Exposure: No Use of substances other than those prescribed or required for medical reasons: No Advance Directives: No Advance Directives Information Provided: No Current occupational status: unemployed and retired Current occupation: right handed Physical Exam 2 Vital Signs: Vital Signs: Last Vital Signs Temp 98.2 F 01/26/24 20:40 Pulse 96 01/26/24 20:40 Resp 16 01/26/24 20:40 BP 121/44 L 01/26/24 20:40 Pulse Ox 99 01/26/24 20:40 O2 Del Method Room Air 01/26/24 20:40 BMI result Body Mass Index 45.7 Vital signs have been reviewed and appear to be correct. Blood pressure elevated. Heart rate normal. Respiratory rate normal. Temperature normal. Oxygen saturation normal. Appearance: Alert. Oriented X3. No acute distress. Head: Normal external exam. Normocephalic. Atraumatic. No Moyer signs noted. No raccoon eyes noted Eyes: PERRLA. EOMI. Conjunctiva and sclera normal. Eyelids normal. ocular ultrasound and visual acuity not done yet deferred to Dr. Aj to assess ENT: TM's Normal. Pharynx normal. Uvula midline. Moist mucous membranes. No trismus noted. No drooling noted. No muffled voice noted. Neck: Normal inspection. Neck supple. FROM. No adenopathy. Thyroid Normal. No meningeal signs. No neck mass noted. CVS: Normal heart rate and rhythm. Heart sound normal. No murmurs noted. Pulses normal throughout. Respiratory: No respiratory distress. Painless inspiration. Breath sounds normal. No wheezes/rales/rhonchi noted. Chest nontender. No accessory muscle usage noted or decreased air movement noted. Abdomen: Soft and nontender. Bowel sounds normal in all 4 quadrants. No distention noted. No organomegaly noted. No visible injury noted. Back: No CVA tenderness. Full range of motion noted. Skin: Skin warm and dry. Normal skin color. Normal skin turgor. No rashes/lesions/lacerations noted. Extremities: No lower extremity edema. Extremities exhibit normal range of motion. Extremities nontender. Neuro: Oriented X 3. Cranial nerve exam: II-XII are grossly intact No motor deficit. No sensory deficit. Reflexes normal. Course Reevaluation(s) Reevaluation #1: 63-year-old female came in with right eye diplopia accompanied with vertigo and dizziness. Unclear if this is due to a focal ocular pathology versus stroke. CT/CT angio of the head and neck is negative for acute thromboembolic event, case discussed with Dr. Mccurdy NIH score is 0 no indication for thrombolysis, will administer aspirin. Case signed out to for further eye evaluation and ocular ultrasound to rule out retinal detachment. The plan is to admit. Time: 21:33 Medications Administered Discontinued Medications Generic Name Dose Route Start Last Admin Trade Name Freq PRN Reason Stop Dose Admin Aspirin 325 mg 01/26/24 21:37 01/26/24 21:53 Aspirin Enteric Coated 325 Mg Tablet.Dr NORTON 01/26/24 21:38 325 mg ONCE ONE Administration Iohexol 100 ml 01/26/24 20:38 01/26/24 20:38 Iohexol 350 Mg/Ml 100 Ml Infus..Btl IV 01/26/24 20:39 70 ml ONCE ONE Administration Medical Decision Making Medical Decision Making [facility] Narrative: This patient was signed out to me by the previous emergency physician. The patient is a 63-year-old woman who was playing a computer game when she developed a sense that something was wrong with her vision and she also felt very dizzy and vertiginous. She felt that there was some strange double vision that she was experiencing. She says that she was able to see but something felt wrong with her vision. After about half an hour she came to the emergency room. She was seen by the previous emergency physician. Her NIH stroke scale was 0. Her head CT was negative. A noncontrast head CT was unremarkable. Previous emergency physician had spoken to the on-call neurologist who recommended against consideration of thrombolytic therapy as the patient had an NIH stroke scale of 0. The exact diagnosis was not clear. After sign out I performed a bedside ultrasound to look for a possible retinal detachment or other ocular problem. I did not detect any retinal detachment or vitreous abnormality or any other finding on bedside ultrasound. The patient has no visual field deficit in either eye. She continues to complain of diplopia when both eyes are open but she does not seem to have diplopia went either eye is covered. Her visual acuity with her usual glasses is 20/20 in each eye tested separately. She says that when she performed the visual acuity testing the right eye seemed normal but when looking at the visual chart with the left eye she felt the chart looked tilted strangely. Otherwise her neurological exam seems normal. There is no facial asymmetry. Speech is normal. No pronator drift. Strength and sensation are normal in all extremities. Finger-nose is normal. Heel-etienne is normal. Gait is normal. The exact diagnosis in this case is not clear. In case this is some kind of an unusual stroke the patient will be admitted to the hospitalist service for further evaluation. Charanjit Hurley Differential Diagnosis Differential Diagnoses: The differential diagnosis associated with the presentation includes ( Hemorrhagic stroke, ischemic stroke, retinal detachment, electrolyte derangement, severe anemia.) Admission/Observation Consideration of admission/observation: Escalation of care including admission/observation considered Consult Healthcare Provider Management of the patient was discussed with: Hospitalist ( Dr. Avilez) and Director Workforce Management ( Dr. Mccurdy) Lab Data MDM Lab Attestation statement: I reviewed the patient's lab results. 01/26/24 20:56 01/26/24 20:56 Labs: Lab Results 01/26/24 01/26/24 01/26/24 Range/Units 20:08 20:56 21:37 WBC 11.7 H (4.8-10.8) X10*3/uL RBC 4.90 (4.20-5.50) X10*6/uL Hgb 14.1 (12.0-16.0) g/dl Hct 42.5 (37.0-47.0) % MCV 86.7 (80.0-98.0) fL MCH 28.8 (27.0-33.0) pg MCHC 33.2 (31.0-35.0) g/dl RDW 13.8 (11.0-16.0) % Plt Count 226 (160-400) X10*3/uL MPV 11.6 (9.4-12.3) fL Immature Gran % (Auto) 0.5 H (0.0-0.4) % Neut % (Auto) 49.5 (45-73) % Lymph % (Auto) 41.8 H (20-40) % [place] % (Auto) 5.3 (2-11) % Eos % (Auto) 2.0 (0-4) % Baso % (Auto) 0.9 (0-2) % Lymph # (Auto) 4.9 (1.2-4.9) X10*3/uL [place] # (Auto) 0.6 (0.1-1.2) X10*3/uL Eos # (Auto) 0.2 (0.0-0.4) X10*3/uL Baso # (Auto) 0.1 (0.0-0.2) X10*3/uL Abs Immat Gran (auto) 0.06 H (0.00-0.03) X10*3/uL Absolute Neuts (auto) 5.8 (2.0-8.3) x10*3/uL Absolute Nucleated RBC 0.000 (0.0-0.012) X10*3/uL Nucleated RBC % (auto) 0.0 (0.0-0.2) /100WBC PT 10.2 L (10.9-12.4) SEC INR 0.9 (0.9-1.1) APTT 30.2 (26.0-36.8) SEC Sodium 140 (135-145) mmol/L Potassium 4.2 (3.3-5.1) mmol/L Chloride 106 (96-108) mmol/L Carbon Dioxide 25 (22-29) mmol/L Anion Gap 13 (12-20) BUN 13 (9-16) mg/dL Creatinine 0.93 (0.5-1.4) mg/dL Estim Creat Clear Calc 84.2 Estimated GFR > 60 POC Glucose 124 H (60-115) mg/dL Random Glucose 105 (60-115) mg/dL Calcium 9.9 (8.4-10.2) mg/dL Troponin I High Sens < 2.7 (<3.5-17.0) ng/L Triglycerides 150 H (<150) mg/dL Cholesterol 175 (<200) mg/dL LDL Cholesterol, Calc 97 (<100) mg/dL HDL Cholesterol 48 (>40) mg/dL Urine Color Yellow Urine Appearance Clear Urine pH 6.0 (5.0-9.0) Ur Specific [place] 1.020 (1.005-1.025) Urine Protein Negative (Neg-Trace) mg/dL Urine Glucose (UA) Negative (Negative) mg/dL Urine Ketones Negative (Negative) mg/dL Urine Blood Negative (Negative) Urine Nitrite Negative (Negative) Ur Leukocyte Esterase Negative (Negative) Urine RBC 0-2 (0-2) /HPF Urine WBC 0-5 (0-5) /HPF Ur Squamous Epith Cells 0-2 (0-2) /HPF Urine Bacteria None Seen (None Seen) Hyaline Casts 0-2 (0-2) /LPF Independent Interpretation I performed an independent interpretation of an: CT Scan ( head/ CTA angio head and neck: No acute intracranial pathology.) Radiology Impression Discussion of test interpretation with radiology: I have reviewed the radiologist's reading. NIH Stroke Scale Internal: Initial- Upon Arrival Level of Consciousness: Alert Level of Consciousness Questions: Answers both questions correctly Level of Consciousness Commands: Performs both tasks correctly Best Gaze: Normal Visual: No visual loss Facial Palsy: Normal Motor Arm (Right): No drift Motor Arm (Left): No drift Motor Leg (Right): No drift Motor Leg (Left): No drift Limb Ataxia: Absent Sensory: Normal Best Language: No aphasia Dysarthia: Normal Extinction and Inattention: No abnormality Score: 0 Discharge Plan Discharge Patient Disposition: Admitted As Inpatient Prescriptions: No Action atorvastatin 10 mg tablet 10 mg PO DAILY meloxicam 15 mg tablet 15 mg PO DAILY lisinopril 10 mg tablet 10 mg PO DAILY quetiapine 25 mg tablet 25 mg PO BEDTIME metformin 500 mg tablet 500 mg PO BID pentoxifylline 400 mg tablet extended release 400 mg PO BID milk thistle 500 mg Capsule 500 mg PO DAILY Rx Instructions: give with meal/snack aspirin 81 mg Tablet 81 mg PO DAILY vitamin B complex Tablet,Chewable PO Probiotic with Prebiotic 1 billion-250 cell-mg Capsule 1 cap PO DAILY Culturelle PO DAILY omega-3 acid ethyl esters PO cholecalciferol (vitamin D3) PO Print Language: Bulgarian
[2024-01-26 21:11] LABS: Partial Thromboplastin Time 30.2 SEC (26.0-36.8)
[2024-01-26 21:19] LABS: Anion Gap 13 (12-20); Blood Urea Nitrogen 13 mg/dL (9-16); Calcium 9.9 mg/dL (8.4-10.2); Carbon Dioxide 25 mmol/L (22-29); Chloride 106 mmol/L (96-108); Cholesterol 175 mg/dL (<200); Creatinine Clr Calc Pharmacy 84.2; Estimated Glomerular Filt Rate > 60; Glucose Random 105 mg/dL (60-115); HDL Cholesterol 48 mg/dL (>40); LDL Cholesterol Calculated 97 mg/dL (<100); Potassium 4.2 mmol/L (3.3-5.1); Sodium 140 mmol/L (135-145); Triglycerides 150 mg/dL (<150)
[2024-01-26 21:30] LABS: Stroke Lab Use COMPLETE; Troponin-I High Sensitivity < 2.7 ng/L (<3.5-17.0)
[2024-01-26 21:45] LABS: Appearance Urine Clear; Color Urine Yellow; Glucose Urine UA Negative (Negative); Leukocyte Esterase Urine Negative (Negative); Nitrite Urine Negative (Negative); Urine Blood Negative (Negative); Urine Ketones Negative (Negative); Urine Protein Negative (Neg-Trace)
[2024-01-26 21:48] LABS: Bacteria Urine None Seen (None Seen); Hyaline Casts Urine 0-2 /LPF (0-2); RBC Urine 0-2 /HPF (0-2); Squamous Epithelial Cell Urine 0-2 /HPF (0-2); WBC Urine 0-5 /HPF (0-5)
[2024-01-26] MEDS: Aspirin Enteric Coated 325 MG TABLET.DR PO (21:53)
--- NOTE | 2024-01-26 22:26 | PM.IMHP ---
History of Present Illness Date of Service: 01/26/24 Chief Complaint: Double vision This is a 63-year-old female with pertinent history of hypertension, mood disorder, kii-iiuaaft-lsfrmdkdw diabetes mellitus, mixed hyperlipidemia, nonalcoholic fatty liver disease presents to the emergency department for concerns of double vision. Patient states her symptoms started suddenly while she was playing video games on her laptop. She had sudden onset of double vision. This was associated with dizziness and vertigo. This has never happened before. The double vision has been persistent and not resolved. No focal motor deficits. No speech deficit. No facial droop. No fever, chills, chest discomfort, palpitations, shortness of breath, abdominal pain, changes in urinary or bowel habits. The emergency department, CT head and CT angio head/neck without any acute abnormality. Neurology was consulted who requested administration of aspirin and admission to hospital medicine team. Review of Systems Constitutional: Constitutional: Reports no additional constitutional complaints ENT: Reports vertigo and Reports dizziness Cardiovascular: Cardiovascular: Reports no additional cardiovascular complaints Respiratory: Respiratory: Reports no additional respiratory complaints Gastrointestinal: Gastrointestinal: Reports no additional gastrointestinal complaints Genitourinary: Genitourinary: Reports no additional female genitourinary complaints Neurologic: Reports vertigo, Reports dizziness and Reports Other visual disturbances [facility] Medical History History of kidney infection Morbid obesity Osteoarthritis of left knee Pertinent family history: No family history of early CAD Surgical History History of kidney surgery History of partial hysterectomy Hx laparoscopic cholecystectomy Social History Alcohol intake: never Patient Tobacco Use Status: Never used Tobacco Smoked in Last 30 Days: No Second Hand Smoke Exposure: No Use of substances other than those prescribed or required for medical reasons: No Advance Directives: No Advance Directives Information Provided: No Current occupational status: unemployed and retired Current occupation: right handed Meds Allergies Allergy/AdvReac Type Severity Reaction Status Date / Time tetracycline [TETRACYCLINE] Allergy Severe SYNCOPE, Verified 01/26/24 20:19 faintning spells oxycodone AdvReac Intermediate Stomach Verified 01/26/24 20:19 Upset Sulfa (Sulfonamide AdvReac Unknown VOMITING Verified 01/26/24 20:19 Antibiotics) [SULFA (SULFONAMIDE ANTIBIOTICS)] morphine AdvReac Vomiting Verified 01/26/24 20:19 Home Medications ?Medication ?Instructions ?Recorded ?Confirmed ?Last Taken ?Type cholecalciferol (vitamin D3) PO 04/07/21 Unknown History omega-3 acid ethyl esters PO 04/07/21 Unknown History Bacillus coagulans-inulin 1 1 cap PO DAILY 10/04/23 10/04/23 Unknown History billion cell-250 mg capsule (Probiotic with Prebiotic) Culturelle PO DAILY 10/04/23 Unknown History aspirin 81 mg tablet 81 mg PO DAILY 10/04/23 10/04/23 Unknown History atorvastatin 10 mg tablet 10 mg PO DAILY 10/04/23 10/04/23 Unknown History lisinopril 10 mg tablet 10 mg PO DAILY 10/04/23 10/04/23 Unknown History meloxicam 15 mg tablet 15 mg PO DAILY 10/04/23 10/04/23 Unknown History metformin 500 mg tablet 500 mg PO BID 10/04/23 10/04/23 Unknown History milk thistle 500 mg capsule 500 mg PO DAILY 10/04/23 10/04/23 Unknown History pentoxifylline 400 mg 400 mg PO BID 10/04/23 10/04/23 Unknown History tablet,extended release quetiapine 25 mg tablet 25 mg PO BEDTIME 10/04/23 10/04/23 Unknown History vitamin B complex tab PO 10/04/23 Unknown History Physical Exam Vital Signs and Narrative: Vital Signs: Last Vital Signs Temp 98.2 F 01/26/24 20:40 Pulse 96 01/26/24 20:40 Resp 16 01/26/24 20:40 BP 121/44 L 01/26/24 20:40 Pulse Ox 99 01/26/24 20:40 O2 Del Method Room Air 01/26/24 20:40 BMI result Body Mass Index 45.7 Middle-aged female lying in bed in no distress Neck supple, no JVD Regular rate and rhythm, S1-S2 heard Regular breath sounds bilaterally, no wheezing or crackles appreciated Abdomen soft nontender, no guarding, no rigidity Patient is awake, alert and oriented to self, place, time and person, strength 5/5 in bilateral upper and lower extremity, no nystagmus, tongue and uvula midline Psych: Normal mood No pedal edema Results Labs 01/26/24 20:56 01/26/24 20:56 Labs: Laboratory Results - last 24 hr 01/26/24 01/26/24 01/26/24 20:08 20:56 21:37 MCV 86.7 MCH 28.8 MCHC 33.2 RDW 13.8 Plt Count 226 MPV 11.6 Immature Gran % (Auto) 0.5 H Neut % (Auto) 49.5 Lymph % (Auto) 41.8 H [place] % (Auto) 5.3 Eos % (Auto) 2.0 Baso % (Auto) 0.9 Lymph # (Auto) 4.9 [place] # (Auto) 0.6 Eos # (Auto) 0.2 Baso # (Auto) 0.1 Abs Immat Gran (auto) 0.06 H Absolute Neuts (auto) 5.8 Absolute Nucleated RBC 0.000 Nucleated RBC % (auto) 0.0 PT 10.2 L INR 0.9 APTT 30.2 Anion Gap 13 Estim Creat Clear Calc 84.2 Estimated GFR > 60 POC Glucose 124 H Random Glucose 105 Calcium 9.9 Troponin I High Sens < 2.7 Triglycerides 150 H Cholesterol 175 LDL Cholesterol, Calc 97 HDL Cholesterol 48 Urine Color Yellow Urine Appearance Clear Urine pH 6.0 Ur Specific [place] 1.020 Urine Protein Negative Urine Glucose (UA) Negative Urine Ketones Negative Urine Blood Negative Urine Nitrite Negative Ur Leukocyte Esterase Negative Urine RBC 0-2 Urine WBC 0-5 Ur Squamous Epith Cells 0-2 Urine Bacteria None Seen Hyaline Casts 0-2 Imaging Radiologist's Impressions: Impressions Head CT 01/26/24 20:10 IMPRESSION: No acute intracranial finding. Dr Smith was directly informed of the findings by telephone at 8:25 PM on January 26, 2024. Electronically signed by: Roque Green MD 01/26/2024 08:25 PM EDT RP Chest X-Ray 01/26/24 20:11 IMPRESSION: No acute intrathoracic disease. Electronically signed by: Dat Richards MD 01/26/2024 09:49 PM EDT RP Head/Neck CTA 01/26/24 20:13 IMPRESSION: CTA head demonstrates no large vessel occlusion, saccular aneurysm, or dissection. CTA neck demonstrates no hemodynamically significant stenosis, dissection, or aneurysm. Electronically signed by: Koby Minor MD 01/26/2024 09:23 PM EDT RP Assessment and Plan (1) Diplopia: Status: Acute Plan This is a 63-year-old female with pertinent history of hypertension, mood disorder, vjb-ecezucd-uziuexhii diabetes mellitus, mixed hyperlipidemia, nonalcoholic fatty liver disease presents to the emergency department for concerns of double vision. #. Diplopia: CT head and CT angio head/neck without any acute abnormality. Neurology was consulted from the ER. Patient given aspirin. Obtaining MRI to delineate underlying anatomy. Further workup based on MRI results #. Fsx-cfuqgjr-akaojmffb diabetes mellitus: Initiating Accu-Cheks with sliding scale insulin #. Mood disorder: Continue home mood stabilizers #. Hypertension: Hold home antihypertensives in the setting of possible acute CVA to allow for permissive hypertension #. Mixed hyperlipidemia: On statin Med rec pending DVT prophylaxis: Lovenox Full code Quality Stroke Does the patient have a stroke diagnosis?: No VTE Prior VTE?: No VTE Risk Level:: Medical - moderate - high VTE Device Contraindication: Treatment Not Indicated VTE Drug Contraindication: N/A - Med Ordered
[2024-01-26] MEDS: Enoxaparin Sodium 40 MG/0.4 ML SYRINGE SUBCUT (22:56)
[2024-01-26 23:56] VITALS: BP 121/61; PULSE 95; RESP 18; O2SAT 96
[2024-01-27 02:41] VITALS: BP 108/56; PULSE 80; RESP 18; TEMP 36.6; O2SAT 98
[2024-01-27 05:34] LABS: Hematocrit 43.6 % (37.0-47.0); Hemoglobin 14.3 g/dl (12.0-16.0); Mean Corpuscular HGB Conc 32.8 g/dl (31.0-35.0); Mean Corpuscular Hemoglobin 28.1 pg (27.0-33.0); Mean Corpuscular Volume 85.8 fL (80.0-98.0); Mean Platelet Volume 11.4 fL (9.4-12.3); Platelet Count 227 X10*3/uL (160-400); Red Blood Count 5.08 X10*6/uL (4.20-5.50); Red Cell Distribution Width 13.9 % (11.0-16.0); White Blood Count 11.1 X10*3/uL (4.8-10.8)
[2024-01-27 05:46] LABS: Anion Gap 17 (12-20); Blood Urea Nitrogen 11 mg/dL (9-16); Calcium 10.2 mg/dL (8.4-10.2); Carbon Dioxide 22 mmol/L (22-29); Chloride 107 mmol/L (96-108); Estimated Glomerular Filt Rate > 60; Glucose Random 134 mg/dL (60-115); Potassium 3.7 mmol/L (3.3-5.1); Sodium 142 mmol/L (135-145)
[2024-01-27 06:17] VITALS: BP 90/48; PULSE 88; RESP 13; TEMP 36.6; O2SAT 95
--- NOTE | 2024-01-27 06:19 | PC.NURSE ---
pt is axox4 neuros intact. initially refused vitals and was agreeable to labs being drawn if 1 out of 2 IVs were removed. stated 20g IV R. ac is bothersome, iv removed. labs were drawn. at this time BP is 90/48. pt would not allow a recheck as stated it hurts too much. pt did not allow recheck in opposite arm either. MD aware. stated will order albumin.
[2024-01-27] MEDS: Albumin Human 25 % 100 ML IV ×2 (07:10→08:01)
[2024-01-27 07:46] LABS: Glucose, Whole Blood 136 mg/dL (60-115)
--- NOTE | 2024-01-27 08:13 | PC.NURSE ---
this RN resumed care of pt at 0645. a&ox4. vss and up to date aside from being slightly hypotensive. nsr/tinus tachy on the cardiac surgeon. HR between 95-105 bpm. denies chest pain/palpitations/sob. neuros remain intact. strength equal bilaterally. face symmetrical. hand-nose coordination intact. no pronator drift noted. pt has no complaints aside from stating that she wishes she could go home as she is certain that she did not have a stroke. pt educated that each person is different in regards to how sx display. pt educate that MRI being completed is important as it may be osman to display something that we were not able to see on CT results. pt agreeable to plan of care in regards to being admitted for observation. no sob/wob noted. respirations even/unlabored. plan of care ongoing. call johnston placed within reach.
[2024-01-27 08:36] VITALS: BP 134/56; PULSE 97; RESP 18; TEMP 36.6; O2SAT 97
--- NOTE | 2024-01-27 09:00 | PC.NURSE ---
MRI form filled out/faxed/placed in pt's chart.
--- NOTE | 2024-01-27 09:11 | P.PNIM_ITS ---
Subjective Subjective Date of Service: 01/27/24 Interval History: f/u diplopia persistent diplopia Physical Exam 2 Vital Signs: Vital Signs: Last Vital Signs Temp 97.8 F 01/27/24 08:36 Pulse 97 01/27/24 08:36 Resp 18 01/27/24 08:36 BP 134/56 L 01/27/24 08:36 Pulse Ox 97 01/27/24 08:36 O2 Del Method Room Air 01/27/24 08:36 BMI result Body Mass Index 45.7 General: AO X 3, no acute distress Resp: CTA bilateral CVS: S1,S2,RRR GI: +BS, NT, no distention Skin: No rash Neuro: motor grossly intact Psych: appropriate affect Objective Data Active Medications Acetaminophen (Acetaminophen 325 Mg Tablet) 650 mg PO Q6H PRN PRN Reason: Pain, Mild (Pain Scale 1-3), fever or headache Calcium Carbonate (Calcium Carbonate 750 Mg Tab.Chew) 750 mg PO Q4H PRN PRN Reason: Heartburn Enoxaparin Sodium (Enoxaparin Sodium 40 Mg/0.4 Ml Syringe) 40 mg SUBCUT Q24H [facility] Last Admin: 01/26/24 22:56 Dose: 40 mg Documented By: KRISTY Glucose (Glucose Gel 15 Gm Gel..Gram.) 15 gm PO Q15M PRN; Protocol PRN Reason: per Hypoglycemia Standing Ord. Dextrose (D10) 250 mls @ 750 mls/hr IV Q15M PRN; Protocol PRN Reason: per Hypoglycemia Standing Ord. Insulin Human Lispro (Insulin Lispro 100 Unit/Ml 3 Ml Vial) 0 unit SUBCUT QIDACHS [facility]; Protocol Last Admin: 01/27/24 07:45 Dose: Not Given Documented By: KRIS Non-Admin Reason: No Insulin Coverage Magnesium Hydroxide (Milk Of Magnesia 30 Ml Oral.Susp) 30 ml PO DAILY PRN PRN Reason: Constipation Melatonin (Melatonin 3 Mg Tablet) 6 mg PO BEDTIME PRN PRN Reason: Insomnia Ondansetron HCl (Ondansetron Hcl 4 Mg/2 Ml Vial) 4 mg IVPUSH Q8H PRN PRN Reason: Nausea and Vomiting Sodium Chloride (0.9 % Sodium Chloride Flush 3 Ml Syringe) 3 ml IVFLUSH QSHIFT [facility] Last Admin: 01/27/24 07:16 Dose: Not Given Documented By: KRIS Non-Admin Reason: IV Running Labs 01/27/24 05:26 01/27/24 05:26 Labs: Laboratory Results - last 24 hr 01/26/24 01/26/24 01/26/24 20:08 20:56 21:37 MCV 86.7 MCH 28.8 MCHC 33.2 RDW 13.8 Plt Count 226 MPV 11.6 Immature Gran % (Auto) 0.5 H Neut % (Auto) 49.5 Lymph % (Auto) 41.8 H [place] % (Auto) 5.3 Eos % (Auto) 2.0 Baso % (Auto) 0.9 Lymph # (Auto) 4.9 [place] # (Auto) 0.6 Eos # (Auto) 0.2 Baso # (Auto) 0.1 Abs Immat Gran (auto) 0.06 H Absolute Neuts (auto) 5.8 Absolute Nucleated RBC 0.000 Nucleated RBC % (auto) 0.0 PT 10.2 L INR 0.9 APTT 30.2 Anion Gap 13 Estim Creat Clear Calc 84.2 Estimated GFR > 60 POC Glucose 124 H Random Glucose 105 Calcium 9.9 Troponin I High Sens < 2.7 Triglycerides 150 H Cholesterol 175 LDL Cholesterol, Calc 97 HDL Cholesterol 48 Urine Color Yellow Urine Appearance Clear Urine pH 6.0 Ur Specific [place] 1.020 Urine Protein Negative Urine Glucose (UA) Negative Urine Ketones Negative Urine Blood Negative Urine Nitrite Negative Ur Leukocyte Esterase Negative Urine RBC 0-2 Urine WBC 0-5 Ur Squamous Epith Cells 0-2 Urine Bacteria None Seen Hyaline Casts 0-2 01/27/24 01/27/24 05:26 07:38 MCV 85.8 MCH 28.1 MCHC 32.8 RDW 13.9 Plt Count 227 MPV 11.4 Immature Gran % (Auto) Neut % (Auto) Lymph % (Auto) [place] % (Auto) Eos % (Auto) Baso % (Auto) Lymph # (Auto) [place] # (Auto) Eos # (Auto) Baso # (Auto) Abs Immat Gran (auto) Absolute Neuts (auto) Absolute Nucleated RBC 0.000 Nucleated RBC % (auto) 0.0 PT INR APTT Anion Gap 17 Estim Creat Clear Calc 91.0 Estimated GFR > 60 POC Glucose 136 H Random Glucose 134 H Calcium 10.2 Troponin I High Sens Triglycerides Cholesterol LDL Cholesterol, Calc HDL Cholesterol Urine Color Urine Appearance Urine pH Ur Specific [place] Urine Protein Urine Glucose (UA) Urine Ketones Urine Blood Urine Nitrite Ur Leukocyte Esterase Urine RBC Urine WBC Ur Squamous Epith Cells Urine Bacteria Hyaline Casts Assessment and Plan (1) Diplopia: Status: Acute Plan 63-year-old female with pertinent history of hypertension, mood disorder, wfc-nwwjpce-chnbxnusl diabetes mellitus, mixed hyperlipidemia, nonalcoholic fatty liver disease presents to the emergency department for concerns of double vision. Diplopia, nl vision. CT H, heada and neck normal. -continue ASA, -MRI -Neuro consult -consider echo if MRI abnormal Cbi-[id number]-[id number] -Sliding Scale Initiating Accu-Cheks with sliding scale insulin Mood disorder -Continue home mood stabilizers HTN -resume home meds after med rec HLD -statin morbid obesity--weight loss advised Med rec pending DVT prophylaxis: Lovenox Full code Quality Stroke Does the patient have a stroke diagnosis?: No VTE Prior VTE?: No VTE Risk Level:: Medical - moderate - high VTE Device Contraindication: Treatment Not Indicated VTE Drug Contraindication: N/A - Med Ordered
--- NOTE | 2024-01-27 09:19 | PC.NURSE ---
pt to MRI at this time.
--- NOTE | 2024-01-27 10:01 | PHA.MEDREC ---
Pharmacy Consult ? Medication Reconciliation Pharmacy has completed the medication reconciliation. Spoke with patient to confirm medications. Confirmed vtiamins and supplements with her. She takes 1/2 tab of quetiapine prn for sleep and the pentoxyfylline once daily. She reports she finished the permethrine cream. Patient took only morning medications yesterday.
[2024-01-27] MEDS: Atorvastatin Calcium 10 MG TABLET PO (11:01)
[2024-01-27] MEDS: Insulin Lispro 100 UNIT/ML 3 ML VIAL SUBCUT ×2 (13:15→19:08)
[2024-01-27 13:19] LABS: Glucose, Whole Blood 207 mg/dL (60-115)
--- NOTE | 2024-01-27 14:08 | PM.NEUROCN ---
History of Present Illness Data of Consult Service Date: 01/27/24 Primary Care Provider: Unknown Physician HPI Reason for consult: Diplopia 63 years old woman with diabetes came to hospital with new onset of double vision dizziness. She was seeing 1 thing on top of other. Initially she insisted that it was from right eye an ER physician also examine her last night stating that it was her right eye. There was no associated headache. She has felt dizzy/unsteady with this symptom. She said that it started at home when she was playing a game and then it lasted for about 10 minutes. After while it came back and now it was still there. Review of Systems Review of Systems: No recent cold or flu-like illness PMFSH Past Medical History Medical History History of kidney infection Morbid obesity Osteoarthritis of left knee Surgical History Surgical History History of kidney surgery History of partial hysterectomy Hx laparoscopic cholecystectomy Social History Social History Alcohol intake: never Patient Tobacco Use Status: Never used Tobacco Smoked in Last 30 Days: No Second Hand Smoke Exposure: No Use of substances other than those prescribed or required for medical reasons: No Advance Directives: No Advance Directives Information Provided: No Nutrition Risks: No Nutritional Risk Current occupational status: unemployed and retired Current occupation: right handed Meds Allergies Allergy/AdvReac Type Severity Reaction Status Date / Time tetracycline [TETRACYCLINE] Allergy Severe SYNCOPE, Verified 01/26/24 20:19 faintning spells oxycodone AdvReac Intermediate Stomach Verified 01/26/24 20:19 Upset Sulfa (Sulfonamide AdvReac Unknown VOMITING Verified 01/26/24 20:19 Antibiotics) [SULFA (SULFONAMIDE ANTIBIOTICS)] morphine AdvReac Vomiting Verified 01/26/24 20:19 Active Medications: Current Medications Acetaminophen (Acetaminophen 325 Mg Tablet) 650 mg PO Q6H PRN PRN Reason: Pain, Mild (Pain Scale 1-3), fever or headache Aspirin (Aspirin Enteric Coated 81 Mg Tablet.) 81 mg PO DAILY DI Atorvastatin Calcium (Atorvastatin Calcium 10 Mg Tablet) 10 mg PO DAILY DI Last Admin: 01/27/24 11:01 Dose: 10 mg Calcium Carbonate (Calcium Carbonate 750 Mg Tab.Chew) 750 mg PO Q4H PRN PRN Reason: Heartburn Enoxaparin Sodium (Enoxaparin Sodium 40 Mg/0.4 Ml Syringe) 40 mg SUBCUT Q24H PENDING SALE TO [facility] Last Admin: 01/26/24 22:56 Dose: 40 mg Glucose (Glucose Gel 15 Gm Gel..Gram.) 15 gm PO Q15M PRN; Protocol PRN Reason: per Hypoglycemia Standing Ord. Dextrose (D10) 250 mls @ 750 mls/hr IV Q15M PRN; Protocol PRN Reason: per Hypoglycemia Standing Ord. Insulin Human Lispro (Insulin Lispro 100 Unit/Ml 3 Ml Vial) 0 unit SUBCUT QIDACHS PENDING SALE TO [facility]; Protocol Last Admin: 01/27/24 13:15 Dose: 4 unit Lisinopril (Lisinopril 10 Mg Tablet) 10 mg PO DAILY PENDING SALE TO [facility]; Protocol Magnesium Hydroxide (Milk Of Magnesia 30 Ml Oral.Susp) 30 ml PO DAILY PRN PRN Reason: Constipation Melatonin (Melatonin 3 Mg Tablet) 6 mg PO BEDTIME PRN PRN Reason: Insomnia Metformin HCl (Metformin Hcl 1,000 Mg Tablet) 1,000 mg PO BID PENDING SALE TO [facility] Multivitamins/Vitamin C (Multivitamin Tablet) 1 tab PO DAILY PENDING SALE TO [facility] Naproxen (Naproxen 500 Mg Tablet) 500 mg PO BID PENDING SALE TO [facility] Ondansetron HCl (Ondansetron Hcl 4 Mg/2 Ml Vial) 4 mg IVPUSH Q8H PRN PRN Reason: Nausea and Vomiting Pentoxifylline (Pentoxifylline Er 400 Mg Tablet.Er) 400 mg PO DAILY PENDING SALE TO [facility] Quetiapine Fumarate (Quetiapine Fumarate 25 Mg Tablet) 12.5 mg PO BEDTIME PRN PRN Reason: Sleep Sodium Chloride (0.9 % Sodium Chloride Flush 3 Ml Syringe) 3 ml IVFLUSH QSHIFT PENDING SALE TO [facility] Last Admin: 01/27/24 07:16 Dose: Not Given Home Medications ?Medication ?Instructions ?Recorded ?Confirmed ?Last Taken ?Type cholecalciferol (vitamin D3) 125 mcg PO DAILY 04/07/21 01/27/24 01/26/24 History Bacillus coagulans-inulin 1 1 cap PO DAILY@1700 10/04/23 01/27/24 Unknown History billion cell-250 mg capsule (Probiotic with Prebiotic) Culturelle 1 cap PO DAILY@0900 10/04/23 01/27/24 01/26/24 History atorvastatin 10 mg tablet 10 mg PO DAILY 10/04/23 01/27/24 01/26/24 History lisinopril 10 mg tablet 10 mg PO DAILY 10/04/23 01/27/24 01/26/24 History meloxicam 15 mg tablet 15 mg PO DAILY 10/04/23 01/27/24 01/26/24 History metformin 500 mg tablet 1,000 mg PO BID 10/04/23 01/27/24 01/26/24 History pentoxifylline 400 mg 400 mg PO DAILY 10/04/23 01/27/24 Unknown History tablet,extended release quetiapine 25 mg tablet 12.5 mg PO BEDTIME PRN Sleep 10/04/23 01/27/24 Unknown History aspirin 81 mg tablet,delayed 81 mg PO DAILY 01/27/24 01/27/24 Unknown History release milk thistle 500 mg capsule 1,000 mg PO DAILY 01/27/24 01/27/24 01/26/24 History omega-3 650 mg-dha 400 mg-epa 200 2 cap PO DAILY 01/27/24 01/27/24 Unknown History mg-fish oil-vit D3 300 unit capsule ([place]-3 Plus Vitamin D3) vitamin B complex 1 tab PO DAILY 01/27/24 01/27/24 01/26/24 History Physical Exam Vital Signs: Vital Signs: Last Vital Signs Temp 97.8 F 01/27/24 08:36 Pulse 97 01/27/24 08:36 Resp 18 01/27/24 08:36 BP 134/56 L 01/27/24 08:36 Pulse Ox 97 01/27/24 08:36 O2 Del Method Room Air 01/27/24 08:36 BMI result Body Mass Index 45.7 Neuro: Other: She is alert and awake with normal spontaneity of speech fluency comprehension and affect. With either eye closed, she does not see double or blurred. With both eyes open, when she sees in front she was reporting seeing 1 object on top of other. Face was symmetrical. Visual almazan are full. Pupils were 3-4 mm round reactive. There was no pronator drift. Deep tendon reflexes were trace to absent with flexor plantars. Speech was normal. Results Labs 01/27/24 05:26 01/27/24 05:26 Labs: Short CBC 01/26/24 01/27/24 Range/Units 20:56 05:26 WBC 11.7 H 11.1 H (4.8-10.8) X10*3/uL Hgb 14.1 14.3 (12.0-16.0) g/dl Hct 42.5 43.6 (37.0-47.0) % Plt Count 226 227 (160-400) X10*3/uL BMP 01/26/24 01/27/24 20:56 05:26 Sodium 140 142 Potassium 4.2 3.7 Chloride 106 107 Carbon Dioxide 25 22 BUN 13 11 Creatinine 0.93 0.86 Calcium 9.9 10.2 Urine 01/26/24 Range/Units 21:37 Urine Color Yellow Urine Appearance Clear Urine pH 6.0 (5.0-9.0) Ur Specific [place] 1.020 (1.005-1.025) Urine Protein Negative (Neg-Trace) mg/dL Urine Glucose (UA) Negative (Negative) mg/dL Noncontrast MRI of brain did not reveal any acute or chronic abnormality. CTA of brain and neck were normal. Assessment and Plan (1) Diplopia: Status: Acute 63 years old woman with new onset of vertical diplopia. Initially she also reported unsteadiness or vertigo type of symptom but that symptoms started when she use an uwfb-ywf-ltglqtu eyedrops and tilted her head backwards to put eyedrops in. That posture might have triggered an episode of benign positional vertigo. Taken everything together, new onset of diplopia and vertigo, 1 might think of of brainstem stroke or pathology but there is no such lesion noted on her imaging. This suggested that word ago was unrelated to her visual symptom. As far as her visual symptom or blurred vision is concerned, at least as per her examination today, it is binocular vertical diplopia not monocular. But yesterday she had insisted that it was only her right eye. Sometime patient's account could be confusing. As no brain lesion is noted, which should have been the case with binocular diplopia, monocular diplopia or alternate etiology should also be considered. In terms of monocular diplopia, diabetic mild 4th nerve palsy can present this way. At the same time, I would also consider neuromuscular disorder and recommend ordering acetyl choline receptor antibody titers, including blocking, binding, and modulating types. Procedures Date of Service Date of Service: 01/27/24
[2024-01-27 14:49] VITALS: BP 123/69; PULSE 94; RESP 18; TEMP 36.4; O2SAT 97
--- NOTE | 2024-01-27 15:36 | PC.NURSE ---
pt verbalizing she does not want to be admitted and would rather follow up w/ neurology post discharge. admitting MD notified/aware. MD bedside speaking w/ pt. plan of care ongoing.
[2024-01-27 15:40] VITALS: BP 146/85; PULSE 94; RESP 16; TEMP 36.6; O2SAT 97
--- NOTE | 2024-01-27 15:43 | MHC.EDTECH ---
This pct assumed care of Patient at 1500 ,vitals taken ,Patient was hooked up to bus monitor ,Patient was moved into a hospital bed .Patient wants to wear her own tana Key aware .Call johnston within Pt reach .
[2024-01-27 18:41] LABS: Glucose, Whole Blood 173 mg/dL (60-115)
[2024-01-27 20:09] VITALS: BP 121/72; PULSE 88; RESP 16; TEMP 37.1; O2SAT 96
[2024-01-27 20:47] LABS: Glucose, Whole Blood 121 mg/dL (60-115)
[2024-01-27] MEDS: QUEtiapine Fumarate 25 MG TABLET 12.5 MG PO (20:48)
--- NOTE | 2024-01-27 20:48 | PC.NURSE ---
pt medicated per mar, tolerated well with water.
[2024-01-28] MEDS: 0.9 % Sodium Chloride Flush 3 ML SYRINGE IVFLUSH (00:40)
--- NOTE | 2024-01-28 01:45 | PC.NURSE ---
pt allowed to sleep, respirations even and unlabored. no acute distress noted.
[2024-01-28 06:52] VITALS: BP 114/62; PULSE 80; RESP 16; TEMP 36.6; O2SAT 95
[2024-01-28 07:10] LABS: Glucose, Whole Blood 131 mg/dL (60-115)
[2024-01-28] MEDS: NaPROXEN 500 MG TABLET PO (08:37)
[2024-01-28] MEDS: Multivitamin TABLET 1 TAB PO (08:37)
--- NOTE | 2024-01-28 08:37 | P.DS_ITS ---
DS: Providers Provider Date of Service: 01/28/24 Date of admission: 01/26/24 22:25 Primary care physician: Unknown Physician Consults: 01/26/24 22:25 Consult to Neurology Routine Consulting Provider: [facility] Reason for consultation: diplopia DS: Diagnosis Discharge Diagnosis (1) Diplopia: Status: Acute DS: Summary Hospital Course Hospital Course: Admission hpi Chief Complaint: Double vision This is a 63-year-old female with pertinent history of hypertension, mood disorder, pdb-ouuyecn-mdrwzcofr diabetes mellitus, mixed hyperlipidemia, nonalcoholic fatty liver disease presents to the emergency department for concerns of double vision. Patient states her symptoms started suddenly while she was playing video games on her laptop. She had sudden onset of double vision. This was associated with dizziness and vertigo. This has never happened before. The double vision has been persistent and not resolved. No focal motor deficits. No speech deficit. No facial droop. No fever, chills, chest discomfort, palpitations, shortness of breath, abdominal pain, changes in urinary or bowel habits. The emergency department, CT head and CT angio head/neck without any acute abnormality. Neurology was consulted who requested administration of aspirin and admission to hospital medicine team. Hospital course: The patient presented with double vision but no other focal neurological deficits. A CT of the head, head and neck CT, and MRI were unremarkable. Neurology suggests a possible 4th nerve palsy related to diabetes. Her vision remains otherwise intact. Further workup for myasthenia gravis is in progress, including acetylcholine receptor antibody titers (blocking, binding, and modulating types). In the meantime, she has been advised to use an eye patch to alleviate the double vision and to follow up with Neurology as an outpatient. She has been cautioned against driving and operating machinery. Time Attestation Discharge Coordination Time (in mins): 35 Quality: Safe Use of Opioids Does Pt have an Active Cancer Diagnosis on the Problem List?: No Quality: Stroke Does the patient have a stroke diagnosis?: No Physical Exam Vital Signs: Vital Signs: Last Vital Signs Temp 97.8 F 01/28/24 06:52 Pulse 80 01/28/24 06:52 Resp 16 01/28/24 06:52 BP 114/62 01/28/24 06:52 Pulse Ox 95 01/28/24 06:52 O2 Del Method Room Air 01/28/24 06:52 BMI result Body Mass Index 45.7 General: AO X 3, no acute distress Resp: CTA bilateral CVS: S1,S2,RRR GI: +BS, NT, no distention Skin: No rash Neuro: motor grossly intact Psych: appropriate affect Const: Other: General: AO X 3, no acute distress Resp: CTA bilateral CVS: S1,S2,RRR GI: +BS, NT, no distention Skin: No rash Neuro: motor grossly intact Psych: appropriate affect DS: Data Data Completed and Pending Labs on day of discharge: Laboratory Results - last 24 hr 01/27/24 01/27/24 01/27/24 11:49 18:28 20:44 POC Glucose 207 H 173 H 121 H 01/28/24 07:06 POC Glucose 131 H Discharge Plan Discharge Anticipated Discharge Date/Time: 01/28/24 08:33 Patient Disposition: Home, Self-Care Discharge Diagnosis: Diplopia (double vision) Referrals: Elida Mccurdy MD [Physician] - 1 Week Physician,Ok Reynaga [Primary Care Provider] - 1 Week Discharge Medications: Continued atorvastatin 10 mg tablet 10 mg PO DAILY meloxicam 15 mg tablet 15 mg PO DAILY lisinopril 10 mg tablet 10 mg PO DAILY quetiapine 25 mg tablet 12.5 mg PO BEDTIME PRN (Reason: Sleep) metformin 500 mg tablet 1,000 mg PO BID pentoxifylline 400 mg tablet extended release 400 mg PO DAILY Probiotic with Prebiotic 1 billion-250 cell-mg Capsule 1 cap PO DAILY@1700 Rx Instructions: Physician's choice digestive enzymes Culturelle 1 cap PO DAILY@0900 aspirin 81 mg Tablet,Delayed Release (Dr/Ec) 81 mg PO DAILY milk thistle 500 mg Capsule 1,000 mg PO DAILY Rx Instructions: give with meal/snack vitamin B complex Tablet 1 tab PO DAILY [place]-3 Plus Vitamin D3 [phone] mt-fl-gj-unit Capsule 2 cap PO DAILY cholecalciferol (vitamin D3) 125 mcg PO DAILY Discharge Orders: Discharge Order (Routine); Ordered 01/28/24 Ordered By: Melquiades Platt Diet: Diabetic diet Activity on Discharge: As tolerated Stand Alone Forms: Patient Portal Discharge page, Against Medical Advice Print Language: Sami Care Plan Goals: Resolution of diplopia (double vision ) Health Concerns: diplopia (double vision) Plan of Treatment: follow-up with Dr. Mccurdy the neurologist to review, labs result follow up with your Doctor in a week Wear eye patch to prevent double vision, especially if operating a vehicle or machinery Assessment: see above
[2024-01-28] MEDS: Aspirin Enteric Coated 81 MG TABLET.DR PO (08:38)
[2024-01-28] MEDS: lisinopriL 10 MG TABLET PO (08:38)
[2024-01-28] MEDS: Atorvastatin Calcium 10 MG TABLET PO (08:38)
[2024-01-28 08:44] VITALS: BP 138/67; PULSE 96; RESP 18; TEMP 36.6; O2SAT 93
[2024-01-28 11:10] LABS: Prothrombin Time Whole Bld POC 11.4 sec (11.1-13.5); ~PT, ~INR - Anti Coag Clinic 0.9 (0.9-1.1)
[2024-02-05 17:29] LABS: Acetylcholine Recep Modulating <1
[2024-02-05 23:44] LABS: Acetylcholine Receptor Binding <0.30 nmol/L
[2024-02-06 02:14] LABS: Acetylcholine Recept. Blocking <15 (<15)
== END 2024-01-28 08:56 | disposition home or self-care (01) ==
LOC: HO.ED 22:47 → HO.EDOVER 22:59 → HO.IMC 01-28 07:46
PROVIDERS: Emergency Medicine; Admitting Provider Student in an Organized Health Care Education/Training Program; Emergency Provider Emergency Medicine; Visit Provider Internal Medicine
DX: H53.2 Diplopia (principal); R42 Dizziness and giddiness; R29.700 NIHSS score 0; I10 Essential (primary) hypertension; F39 Unspecified mood [affective] disorder; E11.9 Type 2 diabetes mellitus without complications; E78.2 Mixed hyperlipidemia; K76.0 Fatty (change of) liver, not elsewhere classified; Z53.29 Procedure and treatment not carried out because of patient's decision for other reasons; Z79.899 Other long term (current) drug therapy
CPT/HCPCS: 36415; 70450; 70496; 70498; 70551; 71045; 80048; 80061; 81001; 82947; 84484; 85025; 85027; 85610; 85730; 86041; 86042; 86043; 93005; 96365; 96366; 96375; 99222; 99285; J1650; P9047; Q9967

== ENCOUNTER → 2024-01-26 21:28 | Outpatient (BNV) | payer MEDICARE, MEDICAID, OTHER, SELFPAY | PROVIDERS: Emergency Provider Emergency Medicine; Visit Provider Student in an Organized Health Care Education/Training Program | DX: H53.2 Diplopia (principal) | CPT/HCPCS: 99222; 99232; 99239 ==

== ENCOUNTER → 2024-01-26 22:25 | Outpatient (BNV) | payer MEDICARE, MEDICAID, OTHER, SELFPAY | PROVIDERS: Admitting Provider Student in an Organized Health Care Education/Training Program; Emergency Provider Emergency Medicine; Visit Provider Psychiatry & Neurology Neurology | DX: H53.2 Diplopia (principal) | CPT/HCPCS: 99222 ==

== ENCOUNTER 2025-01-09 11:27 | Outpatient (REF) | payer MEDICARE, OTHER, MEDICAID, SELFPAY ==
[2025-01-09 13:23] LABS: MANUAL DIFF FLAG NO
[2025-01-09 13:52] LABS: INTERNATIONAL NORM RATIO 1.0 (0.9-1.1); Prothrombin Time 11.1 SEC (10.9-12.4)
[2025-01-09 13:57] LABS: Hematocrit 41.9 % (37.0-47.0); Hemoglobin 14.1 g/dl (12.0-16.0); Imm Gran Abs Auto 0.02 X10*3/uL (0.00-0.03); Imm Gran Pct Auto 0.2 % (0.0-0.4); Lymphocytes Absolute Auto 4.1 X10*3/uL (1.2-4.9); Mean Corpuscular HGB Conc 33.7 g/dl (31.0-35.0); Mean Corpuscular Hemoglobin 28.3 pg (27.0-33.0); Mean Corpuscular Volume 84.1 fL (80.0-98.0); NRBC Abs Auto 0.000 X10*3/uL (0.0-0.012); NRBC Pct Auto 0.0 /100WBC (0.0-0.2); Platelet Count 236 X10*3/uL (160-400); Red Blood Count 4.98 X10*6/uL (4.20-5.50); White Blood Count 9.4 X10*3/uL (4.8-10.8)
[2025-01-09 14:38] LABS: Alanine Aminotransferase 29 U/L (0-31); Albumin Level 4.5 g/dL (3.5-5.0); Alkaline Phosphatase 90 U/L (39-117); Anion Gap 13 (12-20); Aspartate Amino Transferase 32 U/L (5-31); Blood Urea Nitrogen 23 mg/dL (9-16); Calcium 10.0 mg/dL (8.4-10.2); Carbon Dioxide 27 mmol/L (22-29); Chloride 105 mmol/L (96-108); Estimated Glomerular Filt Rate > 60; Potassium 4.5 mmol/L (3.3-5.1); Sodium 140 mmol/L (135-145); Total Protein 7.8 g/dL (6.5-8.0)
[2025-01-09 14:54] LABS: Ferritin 288 ng/mL (10-250)
--- OUTSIDE RECORDS SUMMARY | 2025-01-09 15:10 | XMS_ITS | Encounter Summary ---
Author Organization [facility] Address [address] [place] [address] [address] [place] [address] Care Team Providers Care Professor Of Geology Name Role Phone Unavailable Primary Care Provider Unavailabl e Reason for Visit * Reason Onset Date Comments returning call 01/28/2024 Encounter Details Date Type Department Care Team (Late st Contact Info) Description 01/28/2024 Telephone [facility] [address] [place] [address] Lisset Hager, BDS [address] [place] [address] returning call Social History Tobacco Use Types Packs/Day Years Used Date Smoking Tobacco: Never Smokeless Tobacco: Never Comments Unknown Sex and Gender Information Value Date Recorded Sex Assigned at Female 05/21/2023 1:34 PM EST Legal Sex Female 1:26 PM EST Gender Identity Female 05/21/2023 1:34 PM EST Sexual Orientation Straight 08/29/2023 3: 48 PM EDT documented as of this encounter Miscellaneous Notes * Telephone Encounter - Moon Ge - 01/28/2024 12:37 PM EDT Patient returning call placed to schedule appt. Pls return call DR documented in this encounter Plan of Treatment Not on file documented as of this encounter Visit Diagnoses Not on filedocumented in this encounter
--- OUTSIDE RECORDS SUMMARY | 2025-01-09 15:10 | XMS_ITS | Clinical Summary ---
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 Do not crush, chew, or split. Active QUEtiapine (SEROquel) 100 MG tablet Take 100 mg by mouth at bedtime. Active metFORMIN (Glucophage) 500 MG tablet Take by mouth. Active lisinopril 10 MG tablet Take by mouth in the morning. Active atorvastatin (Lipitor) 10 MG tablet Take 10 mg by mouth in the morning. Active meloxicam (Mobic) 15 MG tablet 12/22/2023 Active Social History Tobacco Use Types Packs/Day Years Used Date Smoking Tobacco: Never Smokeless Tobacco: Never Tobacco Cessation:Counseling Given: Not Answered Comments Unknown Sex and Gender Information Value Date Recorded Sex Assigned at Female 05/21/2023 1:34 PM EST Legal Sex Female 1:26 PM EST Gender Identity Female 05/21/2023 1:34 PM EST Sexual Orientation Straight 08/29/2023 3: 48 PM EDT Last Filed Vital Signs Vital Sign Reading Time Taken Comments Blood Pressure 152/94 06/06/2023 4:20 PM EST Pulse 105 06/06/2023 4:20 PM EST Temperature - - Respiratory Rate - - Oxygen Saturation - - Inhaled Oxygen Concentration - - Weight - - Height - - Body Mass Index - - Plan of Treatment Health Maintenance Due Date Last Done Comments CT Colonography 1962 Colonoscopy 1962 Dental Prophylaxis 1962 Dental X-Ray: Bitewings 1962 Depression Screening 1962 FIT 1962 HIV Screening 1962 Lipid Panel 1962 SDOH Screening 1962 Sigmoidoscopy 1962 Disability Screening 1962 Alcohol/Substance Use Screening 1974 Hepatitis C Screening 1980 Pap Smear 08/18/1983 Cervical Cancer Screening 1992 HPV/Cotest 1992 Mammogram 2002 Pneumococcal Vaccine: 50+ Years (2 of 2 - PCV) 07/23/2019 07/22/2018 Zoster Vaccines (2 of 2) 03/21/2020 01/25/2020 FOBT 09/20/2021 09/20/2020 Colorectal Cancer Screening 09/21/2023 FIT DNA/Cologuard 09/21/2023 09/20/2020 Dental Oral Exam 12/06/2023 06/06/2023 Influenza Vaccine (#1) 2024 , 01/26/2023, 01/26/2023, Additional history exists Tobacco Screening 07/21/2025 07/21/2024 Dental X-Ray: Full Mouth 06/07/2026 06/06/2023 DTaP/Tdap/Td Vaccines (3 - Td or Tdap) 03/16/2027 03/16/2017, 01/15/2007 RSV Patients and Patients Aged 60 years or older Completed 01/15/2023 COVID-19 Vaccine Completed 06/26/2024, 06/2022, 02/01/2022, Additional history exists HIB Vaccines Aged Out No longer eligi ble based on patient's age to complete this topic HPV Vaccines Aged Out No longer eligi ble based on patient's age to complete this topic Hepatitis A Vaccines Aged Out No long er eligible based on patient's age to complete this topic Hepatitis B Vaccines Aged Out No long er eligible based on patient's age to complete this topic IPV Vaccines Aged Out No longer eligi ble based on patient's age to complete this topic Meningococcal B Vaccine Aged Out No l onger eligible based on patient's age to complete this topic Meningococcal Vaccine Aged Out No ashley owen eligible based on patient's age to complete this topic RSV under 20 months Aged Out No longe r eligible based on patient's age to complete this topic Rotavirus Vaccines Aged Out No longer eligible based on patient's age to complete this topic Procedures Procedure Name Priority Date/Time Associated Diagnosis Comments PANORAMIC RADIOGRAPHIC IMAGE Routine 06/06/2023 4:00 PM EST COMPREHENSIVE ORAL EVALUATION - NEW OR ESTABLISHED PATIENT Routine 06/06/2023 4:00 PM EST from Last 3 Months or Most Recently Relevant to Health Maintenance Insurance [facility] [employer] [place] AD[place]
[2025-01-10 06:28] LABS: Immunoglobulin G 1136 mg/dL (600-1540)
[2025-01-10 09:16] LABS: HBS Num1 0.00 mIU/mL (0-7.99); HBc Num1 0.07 S/CO (0.00-0.79); HBsAGNum1 0.47 S/CO (0.00-0.99); Hepatitis A Antibody IgM 0.09 Index (0-0.79); Hepatitis B Surface Antigen Negative (Negative); ~HepC Num1 0.14 S/CO (0.00-0.79); ~Hepatitis A Antibody IgM Nonreactive (Nonreactive); ~Hepatitis B Surface Antibody NONREACTIVE (Nonreactive); ~Hepatitis C Antibody Nonreactive (Nonreactive)
[2025-01-13 14:14] LABS: Anti Nuclear Antibody Screen NEGATIVE (NEGATIVE)
[2025-01-15 08:58] LABS: Transglutaminase Ab IgG <1.0 U/mL
[2025-01-19 13:03] LABS: Soluble Liver Ag Autoantibody <20.1 U (0.0-20.0)
== END 2025-01-09 11:28 | disposition home or self-care (01) ==
LOC: HO.LAB 11:27
PROVIDERS: PCP Family Medicine; Visit Provider Internal Medicine Gastroenterology
DX: G89.29 Other chronic pain (principal); R10.33 Periumbilical pain; K74.60 Unspecified cirrhosis of liver; K52.839 Microscopic colitis, unspecified; K75.81 Nonalcoholic steatohepatitis (NASH); R79.82 Elevated C-reactive protein (CRP); R79.89 Other specified abnormal findings of blood chemistry; Z11.59 Encounter for screening for other viral diseases; E66.01 Morbid (severe) obesity due to excess calories; M48.00 Spinal stenosis, site unspecified; Z72.89 Other problems related to lifestyle
CPT/HCPCS: 36415; 80053; 81596; 82550; 82728; 82784; 83520; 85025; 85610; 86015; 86038; 86364; 86381; 86704; 86706; 86709; 86803; 87340; 99202

== ENCOUNTER 2025-01-09 11:27 | Outpatient (AMB) | payer MEDICARE, OTHER, MEDICAID, SELFPAY ==
--- NOTE | 2025-01-09 11:33 | A.OFFVIS_ITS ---
Vital Signs 01/09/25 11:36 Height 5 ft 4 in Weight 205 lb 0.478 oz BMI 35.2 BP 124/77 Blood Pressure Location Lt brachial Position Sitting Pulse 80 Intake Visit Reasons: Hepatocellular Disease Intake Note: Suze presents in the office as a new patient for Heptocellular disease. CC: Pains on the right side. She states that she used to smoke and she gets told every year that her liver has gotten worse throughout the scans. Mechanical Technical Service Specialist Required: No Allergies tetracycline (TETRACYCLINE) Allergy (Severe, Verified 01/26/24 20:19) SYNCOPE, faintning spells oxycodone Adverse Reaction (Intermediate, Verified 01/26/24 20:19) Stomach Upset Sulfa (Sulfonamide Antibiotics) (SULFA (SULFONAMIDE ANTIBIOTICS)) Adverse Reaction (Unknown, Verified 01/26/24 20:19) VOMITING morphine Adverse Reaction (Verified 01/26/24 20:19) Vomiting HPI HPI Hepatocellular Disease: Details: HPI 64 yr old f with hx of fatty liver and pancreatitis here for assessment for liver disease She had screening CT for smoking hx she had note of nodular appearing liver she is on mounjaro and losing weight she is non drinker ex smoker, stopped few years ago she is living healthy and eating healthy foods 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 cologuard was done and was negative taking meloxicam daily for spinal pain, no herbal meds ROS: Constitutional : + Weight loss, No Fever, No Chills ENT/Mouth : No sore throat, No Rhinorrhea Eyes: No Swelling, No Redness Cardiovascular : No Chest Pain, No SOB, No Edema Respiratory : No Cough, No Sputum, No Wheezing Gastrointestinal : see HPI Genitourinary : NO Dysuria, No Urinary Frequency, No Hematuria, No Urgency Musculoskeletal : no joint pain, No Myalgias, No Joint Swelling Skin : No Skin Lesions, No rash Neuro : No Weakness, No Numbness, No Dizziness, No Headache Psych : No Anxiety/Panic, No Depression Heme/Lymph: No Bruising, No Lymphadenopathy Endocrine : No Polyuria, No Polydipsia All other systems reviewed and are negative. Medical History History of kidney infection Morbid obesity Osteoarthritis of left knee Surgical History History of kidney surgery History of partial hysterectomy Hx laparoscopic cholecystectomy Social History Alcohol intake: never Patient Tobacco Use Status: Never used Tobacco Second Hand Smoke Exposure: No Current occupational status: unemployed and retired Current occupation: right handed Family Hx: daughter has A1AT ZZ EXAM: GENERAL: The patient is well developed and nontoxic. VITAL SIGNS:see workflow HEENT: Nonicteric sclerae, PERRLA, EOMI. Oropharynx clear. Moist mucous membranes. Conjunctivae appear well perfused. No thyroid mass. CHEST: Chest wall is nontender. HEART: Regular rate and rhythm without murmurs. LUNGS: Clear to auscultation bilaterally. ABDOMEN: Soft, positive bowel sounds, nontender, no organomegaly.no flank tenderness SKIN: No rash, no excessive bruising, petechiae, or purpura. NEUROLOGIC: Cranial nerves II-XII intact without motor/sensory deficit. Psych: normal affect A/P: 1/ Suspected cirrhosis on imaging , maybe fatty liver related PLAN: 1/ check labs as below 2/ US and fibrosure 3/ cont with mounjaro 4/ advised to cut back on meloxicam, can alternate tylenol 2 g daily in total 5/ refer pain for back pain 6/ she was asking about HRT< maybe ok to use patch but can consider non hormonal rx like SSRI, clonidine PFSH Medical History (Updated 01/09/25 @ 12:09 by Sterling Paul MD) History of kidney infection Morbid obesity Osteoarthritis of left knee Surgical History (Updated 01/09/25 @ 11:36 by CHACHO Ling) Hx of colonoscopy History of esophagogastroduodenoscopy (EGD) History of kidney surgery History of partial hysterectomy Hx laparoscopic cholecystectomy Social History Alcohol intake: never Patient Tobacco Use Status: Never used Tobacco Second Hand Smoke Exposure: No Current occupational status: unemployed and retired Current occupation: right handed Physical Exam Vital Signs: Last Vital Signs Pulse 80 01/09/25 11:36 BP 124/77 01/09/25 11:36 BMI result Body Mass Index 35.2 Assessment & Plan Assessment & Plan (1) Cirrhosis: Code(s): K74.60 - Unspecified cirrhosis of liver Category: Medical Plan: as above (2) Morbid obesity: Code(s): E66.01 - Morbid (severe) obesity due to excess calories Category: Medical (3) Spinal stenosis: Code(s): M48.00 - Spinal stenosis, site unspecified Category: Medical Plan: as above Plan as above Orders: Orders Transglutaminase Ab IgG Today G89.29 - Other chronic pain, K74.60 - Unspecified cirrhosis of liver, R10.33 - Periumbilical pain Ferritin Today K74.60 - Unspecified cirrhosis of liver Liver Fibrosis Pnl Today K74.60 - Unspecified cirrhosis of liver Immunoglobulin G Today K52.839 - Microscopic colitis, unspecified, K74.60 - Unspecified cirrhosis of liver Hepatitis A,B,C Profile Today K74.60 - Unspecified cirrhosis of liver, Z11.59 - Encounter for screening for other viral diseases Prothrombin Time INR Today K74.60 - Unspecified cirrhosis of liver US abdomen comp w elastography Today K74.60 - Unspecified cirrhosis of liver Complete Blood Count Auto Diff Today K74.60 - Unspecified cirrhosis of liver Comprehensive Met. Panel Today K74.60 - Unspecified cirrhosis of liver, K75.81 - Nonalcoholic steatohepatitis (ROONEY) ALIZA Reflex Titer and Pattern Today K74.60 - Unspecified cirrhosis of liver, R79.82 - Elevated C-reactive protein (CRP) Smooth Muscle Antibody Today K74.60 - Unspecified cirrhosis of liver Soluble Liver Ag Autoantibody Today K74.60 - Unspecified cirrhosis of liver Mitochondrial Antibody Today K74.60 - Unspecified cirrhosis of liver, R79.89 - Other specified abnormal findings of blood chemistry Creatine Kinase Total Today K74.60 - Unspecified cirrhosis of liver Referrals Rigging Loft Mechanic Nutrition Referral E66.01 - Morbid (severe) obesity due to excess calories, K74.60 - Unspecified cirrhosis of liver Pain Management Referral M48.00 - Spinal stenosis, site unspecified Coding Level of Care Code New Pt Level 4 (98861) Diagnoses Cirrhosis K74.60 Morbid obesity E66.01 Spinal stenosis M48.00
[2025-01-09 11:36] VITALS: BP 124/77; PULSE 80; BMI 35.2
== END 2025-01-09 12:06 | disposition home or self-care (01) ==
LOC: HO.HGI 11:27
PROVIDERS: PCP Family Medicine; Visit Provider Internal Medicine Gastroenterology
DX: K74.60 Unspecified cirrhosis of liver (principal); E66.01 Morbid (severe) obesity due to excess calories; M48.00 Spinal stenosis, site unspecified
CPT/HCPCS: 99204

== ENCOUNTER 2025-01-12 11:08 | Outpatient (AMB) | payer MEDICARE, OTHER, MEDICAID, SELFPAY ==
--- NOTE | 2025-01-12 11:12 | A.OFFVIS_ITS ---
VS Expanded 01/12/25 11:16 01/13/25 20:57 Height 5 ft 4 in 5 ft 4 in Weight 205 lb 14.588 oz 206 lb BMI 35.3 35.4 Intake Visit Reasons: Morbid (severe) obesity due to excess calories Allergies tetracycline (TETRACYCLINE) Allergy (Severe, Verified 01/26/24 20:19) SYNCOPE, faintning spells oxycodone Adverse Reaction (Intermediate, Verified 01/26/24 20:19) Stomach Upset Sulfa (Sulfonamide Antibiotics) (SULFA (SULFONAMIDE ANTIBIOTICS)) Adverse Reaction (Unknown, Verified 01/26/24 20:19) VOMITING morphine Adverse Reaction (Verified 01/26/24 20:19) Vomiting Nutrition Presentation Details: Pt presents for MNT for Cirrhosis, low fat diet Pt also has T2DM on mounjaro and metformin Pt reports typical meal B: oatmeal or magic spoon cereal with fairlife milk L: protein shake dinner: pork chop and potatoes/onions , physical activity walks 1-2 miles/day fiber gummies 2 d/ay (5 mg fiber) 1 scoop of psylium husk daily with 8-10 oz of water food frequency fruits: 1/d veg: daily fish 0-1/wk rowing machine exercise bike 25 min/day BS Monitoring Most Recent Diabetes Results: Cholesterol, (<200) 175 mg/dL 01/26/24 HDL Cholesterol, (>40) 48 mg/dL 01/26/24 Triglycerides, (<150) 150 mg/dL H 01/26/24 Creatinine, (0.5-1.4) 0.85 mg/dL 01/09/25 BUN, (9-16) 23 mg/dL H 01/09/25 Sodium, (135-145) 140 mmol/L 01/09/25 Potassium, (3.3-5.1) 4.5 mmol/L Δ 01/09/25 Chloride, (96-108) 105 mmol/L 01/09/25 Carbon Dioxide, (22-29) 27 mmol/L 01/09/25 Calcium, (8.4-10.2) 10.0 mg/dL 01/09/25 AST, (5-31) 32 U/L H 01/09/25 ALT, (0-31) 29 U/L 01/09/25 Total Protein, (6.5-8.0) 7.8 g/dL 01/09/25 Albumin, (3.5-5.0) 4.5 g/dL 01/09/25 DKF-Yxsdglx-Ht.Jeor Equation Height: 5 ft 4 in Weight: 206 lb Resting Metabolic Rate: 1483.43 Calculated Activity Level: Sedentary Calories Needed to Maintain Weight: 1780.12 Diagnosis Nutrition problem #1: altered nutrition labs As related to (etiology) #1: diagnosis As evidenced by (sign/symptom) #1: abnormal lab values [facility] Medical History (Updated 01/13/25 @ 21:00 by Katherine Allred, RD, LDN) History of kidney infection Morbid obesity Osteoarthritis of left knee Surgical History (Updated 01/09/25 @ 11:36 by CHACHO Ling) Hx of colonoscopy History of esophagogastroduodenoscopy (EGD) History of kidney surgery History of partial hysterectomy Hx laparoscopic cholecystectomy Social History Alcohol intake: never Patient Tobacco Use Status: Never used Tobacco Second Hand Smoke Exposure: No Current occupational status: unemployed and retired Current occupation: right handed Assessment & Plan Assessment & Plan (1) Morbid obesity: Comment: Pt has cirrhosis Code(s): E66.01 - Morbid (severe) obesity due to excess calories Category: Medical Plan: current wt:94 kg (925 ) est kcal needs as per MSJ: 1800 est protein needs as per 1 g/kg BW: 90 est fluid needs as per 30 ml/kg BW:2800 Recommended fiber > 12 g /day and gradually increase up to 25-28 g /day or as tolerated Sodium recommendation: less than 2300 mg/d Nutrition topics discussed : Reviewed (R), Pt verbalized understanding (V) , not applicable (N/A) R, : Healthy Plate Method Concept: R, V, N/A: Carbohydrates: food sources of carbohydrates, relationship of carbohydrates to blood glucose, fatty liver GI health. Recommended total amount of carbohydrates per meals and snack. Differences between simple carbohydrates and complex carbohydrates R, : Lean protein foods including vegan , vegetarian sources of protein. Benefits of protein (including but not limited to healing, nutritional value , benefits in weight loss, glucose control R, : Fats : Source of fats, benefits of fats. Difference between saturated and unsaturated fats. Saturated fats and its contribution to inflammation. low fat cooking m ethods R, V, N/A: Fiber: food sources and role of fiber in the diet (including but not limited to its role as a prebiotic, benefits in constipation, role in IBS , role in glucose control and cholesterol level) R, V, N/A: Hydration: role of hydration and prevention of dehydration or over hydration. Foods and water content. R, V, N/A: Vitamins and Minerals in foods and supplements R, V, N/A: Interpreting food labels, including serving size, macronutrients, vitamins, minerals, allergens, ingredient list , % daily value Patient Instructions: Have 4-5 small meals per day choosing foods low in saturated fats -Choose grilled , not breaded protein source of foods Choose turkey/ham deli vs salami/bologna (highly processed meats ) see list of low fat protein sources of foods and low fat meal plan ideas Coding Level of Care Code Nutr Indiv Intake (78147) Diagnoses Morbid obesity E66.01 Time Spent (min) 30
[2025-01-12 11:16] VITALS: BMI 35.3
[2025-01-13 20:57] VITALS: BMI 35.4
== END 2025-01-12 12:04 | disposition home or self-care (01) ==
LOC: HO.ENCR 11:09
PROVIDERS: PCP Family Medicine; Visit Provider Dietitian, Registered
DX: E66.01 Morbid (severe) obesity due to excess calories (principal)

== ENCOUNTER → 2025-01-12 11:08 | Outpatient (BNVA) | payer MEDICARE, OTHER, MEDICAID, SELFPAY | PROVIDERS: PCP Family Medicine; Visit Provider Dietitian, Registered | DX: E66.01 Morbid (severe) obesity due to excess calories (principal); Z71.3 Dietary counseling and surveillance | CPT/HCPCS: 97802 ==

== ENCOUNTER 2025-01-23 14:09 | Outpatient (AMB) | payer MEDICARE, OTHER, MEDICAID, SELFPAY ==
--- NOTE | 2025-01-23 14:15 | A.OFFVIS_ITS ---
Vital Signs 01/23/25 14:20 Height 5 ft 4 in Weight 208 lb 4 oz BMI 35.7 BP 179/74 H Blood Pressure Location Rt brachial Position Sitting Pulse 79 Pulse Source Pulse Oximeter Pulse Oximetry (%) 99 Oxygen Delivery Method Room Air Intake Visit Reasons: Spinal stenosis, site unspecified Intake Note: Pain today 07/07 Director Of Billing Required: No Accompanied by: Self / Same As Patient Allergies tetracycline (TETRACYCLINE) Allergy (Severe, Verified 01/23/25 14:19) SYNCOPE, faintning spells oxycodone Adverse Reaction (Intermediate, Verified 01/23/25 14:19) Stomach Upset Sulfa (Sulfonamide Antibiotics) (SULFA (SULFONAMIDE ANTIBIOTICS)) Adverse Reaction (Unknown, Verified 01/23/25 14:19) VOMITING morphine Adverse Reaction (Verified 01/23/25 14:19) Vomiting HPI Comments Details: The patient is a 64-year-old female presenting with back pain suspected to be due to spinal stenosis. The back pain started a couple of years ago, with no specific injury reported, although the patient has lost 2.5 inches in height. The pain is localized to the midline, more towards the coccyx and sacrum, and does not radiate to the legs. The patient reports that the pain is constant and affects her ability to stand for prolonged periods, such as cooking a full meal. Walking downhill exacerbates the pain, while walking uphill is manageable. She uses a U-shaped cushion for sitting and walks five miles a day, which is hindered without meloxicam. The patient has a history of knee pain, which was previously treated with injections, providing relief for over two years. The knee pain has returned but is less severe than before, and meloxicam helps manage it. The patient has liver disease, Sjogren's syndrome, and probable autoimmune hepatitis, which complicates her medication regimen. She has been advised to discontinue meloxicam due to potential liver damage and cardiovascular risks. - Onset: Pain began a couple of years ago. - Quality: Described as constant, sharp, cutting, dull, sore, aching, and heavy. - Location: Midline, more towards the coccyx and sacrum. - Radiation: Does not radiate to the legs. - Exacerbating factors: Walking downhill, standing for long periods. - Relieving factors: Walking uphill, use of meloxicam. - Interference: Affects ability to cook, walk, and perform daily activities. - Affect: Pain impacts daily activities and functioning, including cooking and walking. - Analgesia: Currently using meloxicam, which helps manage pain but needs to be discontinued due to liver disease. - Adverse Effects: Potential liver damage and cardiovascular risks from meloxicam. - Activities of Daily Living: Pain affects ability to perform daily tasks and exercise. - Aberrant Drug Related Behaviors: None reported. Past Procedures: 03/08/21: Left diagnostic genicular nerve block- 90 % pain relief for the 1st 7 hours after the injection PRIOR Dr. Franklin 03/16/21: Suze is a pleasant 60 years old female who presents in my office with complains on pain in the left knee. She reports that she was under care of [facility] surgeons for many years. She was diagnosed with meniscal tear about 7 years ago. Somehow all the surgery for meniscal tear repair was not performe d. She was receiving steroid injections in the knee. She was diagnosed with significant left knee osteoarthritis. The last conclusion was done by [facility] surgery that she is a poor candidate for joint replacement surgery because she is morbidly obese and does not have [id number] arthritis. I performed diagnostic genicular nerve block on 03/08/2021 she reports significant up to 90 % pain relief for the 1st 7 hours after the injection. She still reports the week after injection about 50% of the pain relief. She still reports better mobility with her left knee. Radiofrequency ablation versus peripheral nerve stimulation was discussed today. I explained to her the difference. She wants to proceed with peripheral nerve stimulation. -she needs to go for psychological evaluation. This will be scheduled today. I also need to perform mapping injection now injecting only infrapatellar saphenous nerve for this patient. She had multiple images studies with orthopedic surgeries. She adamantly refused to go to physical therapy. She is getting engage into aerobic exercise sitting in a reclined stationary bicycle. She is using topical medications [id number] to help her pain. She was under care of [facility] pain management in the order to perform radiofrequency ablation. However radiofrequency ablation was declined later on. She never tried chiropractic manipulations or massage therapy. COUNTS INCLUDE 234 BEDS AT THE [facility] Medical History (Updated 01/23/25 @ 14:40 by ALEXANDER Garland) History of kidney infection Morbid obesity Osteoarthritis of left knee Surgical History (Updated 01/09/25 @ 11:36 by CHACHO Ling) Hx of colonoscopy History of esophagogastroduodenoscopy (EGD) History of kidney surgery History of partial hysterectomy Hx laparoscopic cholecystectomy Social History Alcohol intake: never Patient Tobacco Use Status: Never used Tobacco Second Hand Smoke Exposure: No Current occupational status: unemployed and retired Current occupation: right handed Review of Systems Const Details: - Musculoskeletal: Reports back pain localized to the midline, more towards the coccyx and sacrum, without radiation to the legs. - Musculoskeletal: Reports knee pain, less severe than previously experienced. - Gastrointestinal: Denies any gastrointestinal symptoms related to liver dise ase. - General: Reports weight loss of 65 pounds. All systems reviewed & are unremarkable except as noted in HPI and below Physical Exam Vital Signs: Last Vital Signs Pulse 79 01/23/25 14:20 BP 179/74 H 01/23/25 14:20 Pulse Ox 99 01/23/25 14:20 Oxygen Delivery Method Room Air 01/23/25 14:20 BMI result Body Mass Index 35.7 General: Appears afebrile. No acute distress. Alert and oriented. Mood and affect appropriate. Follows and participates in conversation appropriately. Respiratory effort is unlabored. No cough. Able to transition from sit to stand unassisted. Ambulates with bilaterally normal heel strike and toe off. General: Yes no CVA tenderness Back/Spine/Pelvis Other: Patient is able to walk and stand on heels and tip toes with no difficulties demonstrating good motor tone. Normal gait, no limping. Can flex forward to 80- 90 degrees and extend to 5-10 degrees before experiencing lumbar pain, lumbar extension reproduces moderate pain, flexion does not reproduce pain. Demonstrates 5/5 strength of quadriceps bilaterally as well as flexion/dorsiflexion of bilateral feet against resistance. 2+ pedal pulses bilaterally. Straight leg rise with dorsiflexion negative bilaterally. +2 patellar and achilles reflexes bilaterally. Facet loading test positive bilaterally. Carlos?s reproduces bilateral hip pain but not low back or buttock pain. Pelvic compression and Stinchfield tests are negative bilaterally. No groin pain with I/E hip rotations. Valsalva maneuver negative. Back: no CVA tenderness Cervical Spine: normal cervical lordosis, cervical ROM normal and No Cervical spine tenderness Thoracic/Lumbar Spine: thoracic and lumbar spine normal to inspection, No Thoracic/lumbar spine scar(s), Lasegue's sign negative, straight leg raise negative bilaterally, pain with thoraco-lumbar ROM, No thoracic spinal tenderness and lumbar spinal tenderness (L4-S1) Sacroiliac joints: bilaterally (lateral hip) tender to palpation Sacrum: tenderness midline Extrem General: Yes capillary refill normal, Yes no clubbing, cyanosis or edema and Yes no calf tenderness Results Reviewed Results Reviewed: No imaging results are available for review today. Assessment & Plan Assessment & Plan (1) Chronic low back pain: Code(s): M54.50 - Low back pain, unspecified; G89.29 - Other chronic pain Category: Medical (2) Coccydynia: Code(s): M53.3 - Sacrococcygeal disorders, not elsewhere classified Category: Medical (3) Chronic low back pain: Code(s): M54.50 - Low back pain, unspecified; G89.29 - Other chronic pain Category: Medical (4) Lumbar spondylosis: Code(s): M47.816 - Spondylosis without myelopathy or radiculopathy, lumbar region Category: Medical Plan The plan includes obtaining x-rays of the back and sacrum regions to assess for any significant arthritis or other structural issues. Physical therapy is recommended to help manage the back pain, with a referral to [facility] in [place], per patient's request for home proximity. Following physical therapy, further interventions may be considered based on the response to therapy. The patient is advised to discontinue meloxicam due to potential liver damage and cardiovascular risks, and alternative pain management strategies will be explored. If x-rays show significant arthritis, diagnostic injections similar to previous knee treatments may be considered, with options for radiofrequency ablation or temporary stimulation for longer-term pain relief. All questions and concerns have been answered and patient agreed with the treatment plan. Follow up after PT/xray results and sooner as needed. Patient was informed and verbally consented to the use of an ambient scribe for clinic note documentation during this visit. Orders: Orders PT Evaluation and Treatment Today G89.29 - Other chronic pain, M47.816 - Spondylosis without myelopathy or radiculopathy, lumbar region, M53.3 - Sacrococcygeal disorders, not elsewhere classified, M54.50 - Low back pain, unspecified XR sacrum coccyx min 2V Today G89.29 - Other chronic pain, M53.3 - Sacrococcygeal disorders, not elsewhere classified, M54.50 - Low back pain, unspecified XR lumbar spine 4V min Today G89.29 - Other chronic pain, M54.50 - Low back pain, unspecified XR sacroiliac joint min 3V Today M53.3 - Sacrococcygeal disorders, not elsewhere classified Coding Level of Care Code New Pt Level 4 (45419) Diagnoses Chronic low back pain M54.50; G89.29 Coccydynia M53.3 Lumbar spondylosis M47.816
[2025-01-23 14:20] VITALS: BP 179/74; PULSE 79; O2SAT 99; BMI 35.7
--- OUTSIDE RECORDS SUMMARY | 2025-01-23 15:17 | XMS_ITS | Clinical Summary ---
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
--- OUTSIDE RECORDS SUMMARY | 2025-01-23 15:17 | XMS_ITS | Encounter Summary ---
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
== END 2025-01-23 14:47 | disposition home or self-care (01) ==
LOC: HO.PMC 14:09
PROVIDERS: PCP Family Medicine; Visit Provider Nurse Practitioner Family
DX: M54.50 Low back pain, unspecified (principal); G89.29 Other chronic pain; M53.3 Sacrococcygeal disorders, not elsewhere classified; M47.816 Spondylosis without myelopathy or radiculopathy, lumbar region
CPT/HCPCS: 99204

== ENCOUNTER 2025-01-23 14:09 | Outpatient (REF) | payer MEDICARE, OTHER, MEDICAID, SELFPAY ==
--- NOTE | ~2025-01-23 | XR_ITS ---
EXAMINATION: XR SACRUM AND COCCYX CLINICAL INFORMATION: M53.3 - Sacrococcygeal disorders, not elsewhere classified COMPARISON: Correlated to CT abdomen pelvis dated April 11, 2018. TECHNIQUE: AP and lateral views. FINDINGS: No acute cortical disruption. No lytic or blastic lesions. XR/XR sacrum coccyx min 2V IMPRESSION: No acute fracture, sacrococcyx. Electronically signed by: Tushar Don MD 01/23/2025 03:32 PM EDT
--- NOTE | ~2025-01-23 | XR_ITS ---
EXAMINATION: XR SACROILIAC JOINTS CLINICAL INFORMATION: M53.3 - Sacrococcygeal disorders, not elsewhere classified COMPARISON: Correlated to CT abdomen pelvis dated July 21, 2018. TECHNIQUE: AP oblique views of the sacroiliac joints FINDINGS: No acute cortical disruption. Mild sclerosis and the inferior aspect of the sacroiliac joints. No lytic or blastic lesions. Spondylosis at L4-5 and L5-S1. [id number]-[id number] degenerative changes in the coxofemoral joints and symphysis pubis. XR/XR sacroiliac joint min 3V IMPRESSION: Mild sacroiliitis. Electronically signed by: Tushar Don MD 01/23/2025 03:33 PM EDT
--- NOTE | ~2025-01-23 | XR_ITS ---
EXAMINATION: XR LUMBOSACRAL SPINE WITH OBLIQUES CLINICAL INFORMATION: M54.50 - Low back pain, unspecified COMPARISON: Correlated to CT abdomen pelvis dated April 11, 2018. TECHNIQUE: AP oblique and lateral views. FINDINGS: Bilateral facet joint hypertrophy at L4-5 and L5-S1. Mild endplate sclerosis at multiple levels. Decreased intervertebral disc height at L5-S1. No acute cortical disruption or malalignment. Mild S-shaped curvature of the lower lumbar spine. Vascular clips right upper quadrant abdomen. XR/XR lumbar spine 4V min IMPRESSION: Multilevel spondylosis pronounced at L4-5 and L5-S1 without acute fracture or gross listhesis. Mild scoliosis Electronically signed by: Tushar Don MD 01/23/2025 03:31 PM EDT
== END 2025-01-23 14:10 | disposition home or self-care (01) ==
LOC: HO.XRAY 14:09
PROVIDERS: PCP Family Medicine; Visit Provider Nurse Practitioner Family
DX: M47.816 Spondylosis without myelopathy or radiculopathy, lumbar region (principal); M53.3 Sacrococcygeal disorders, not elsewhere classified; G89.29 Other chronic pain
CPT/HCPCS: 72110; 72202; 72220; 99202

== ENCOUNTER → 2025-01-23 14:53 | Outpatient (BNV) | payer MEDICARE, OTHER, MEDICAID, SELFPAY | PROVIDERS: PCP Family Medicine; Visit Provider Radiology Diagnostic Radiology | DX: M47.817 Spondylosis without myelopathy or radiculopathy, lumbosacral region (principal); M46.1 Sacroiliitis, not elsewhere classified; M53.3 Sacrococcygeal disorders, not elsewhere classified | CPT/HCPCS: 72110; 72202; 72220 ==

== ENCOUNTER 2025-03-03 11:14 | Outpatient (AMB) | payer MEDICARE, OTHER, MEDICAID, SELFPAY ==
[2025-03-03 11:42] VITALS: BMI 35.2
--- NOTE | 2025-03-03 11:42 | A.OFFVIS_ITS ---
VS Expanded 03/03/25 11:42 Height 5 ft 4 in Weight 205 lb 4.006 oz BMI 35.2 Intake Visit Reasons: high cholesterol Allergies tetracycline (TETRACYCLINE) Allergy (Severe, Verified 01/23/25 14:19) SYNCOPE, faintning spells oxycodone Adverse Reaction (Intermediate, Verified 01/23/25 14:19) Stomach Upset Sulfa (Sulfonamide Antibiotics) (SULFA (SULFONAMIDE ANTIBIOTICS)) Adverse Reac tion (Unknown, Verified 01/23/25 14:19) VOMITING morphine Adverse Reaction (Verified 01/23/25 14:19) Vomiting Nutrition Presentation Details: Pt presents tof rmNT f/u for high cholesterol , morbid obesity Typical meal intake B:yogurt/banana or 1 cup magic spoon cereal /fairlife milk fat free or smart once ham/cheese or 2 eggs/sausage or gomez on occ L protein shake Dinner [place], sour cream, poultry bedtime: snack, choosing lower sugar snacks average calories 1300 areli per day walking with daughter, 10-15 minutes 3 times a week BS Monitoring Most Recent Diabetes Results: Cholesterol, (<200) 175 mg/dL 01/26/24 HDL Cholesterol, (>40) 48 mg/dL 01/26/24 Triglycerides, (<150) 150 mg/dL H 01/26/24 Creatinine, (0.5-1.4) 0.85 mg/dL 01/09/25 BUN, (9-16) 23 mg/dL H 01/09/25 Sodium, (135-145) 140 mmol/L 01/09/25 Potassium, (3.3-5.1) 4.5 mmol/L Δ 01/09/25 Chloride, (96-108) 105 mmol/L 01/09/25 Carbon Dioxide, (22-29) 27 mmol/L 01/09/25 Calcium, (8.4-10.2) 10.0 mg/dL 01/09/25 AST, (5-31) 32 U/L H 01/09/25 ALT, (0-31) 29 U/L 01/09/25 Total Protein, (6.5-8.0) 7.8 g/dL 01/09/25 Albumin, (3.5-5.0) 4.5 g/dL 01/09/25 [facility] Medical History (Updated 01/23/25 @ 14:40 by ALEXANDER Garland) History of kidney infection Morbid obesity Osteoarthritis of left knee Surgical History (Updated 01/09/25 @ 11:36 by CHACHO Ling) Hx of colonoscopy History of esophagogastroduodenoscopy (EGD) History of kidney surgery History of partial hysterectomy Hx laparoscopic cholecystectomy Social History Alcohol intake: never Patient Tobacco Use Status: Never used Tobacco Second Hand Smoke Exposure: No Current occupational status: unemployed and retired Current occupation: right handed Assessment & Plan Assessment & Plan (1) Morbid obesity: Comment: Pt has cirrhosis Code(s): E66.01 - Morbid (severe) obesity due to excess calories Category: Medical Plan: current wt:94 kg (925 ), 93 kg(03/24) est kcal needs as per MSJ: 1800 est protein needs as per 1 g/kg BW: 90 est fluid needs as per 30 ml/kg BW:2800 Recommended fiber > 12 g /day and gradually increase up to 25-28 g /day or as tolerated Sodium recommendation: less than 2300 mg/d Nutrition topics discussed : Reviewed (R), Pt verbalized understanding (V) , not applicable (N/A) R, : Healthy Plate Method Concept: R, : Carbohydrates: food sources of carbohydrates, relationship of carbohydrates to blood glucose, fatty liver GI health. Recommended total amount of carbohydrates per meals and snack. Differences between simple carbohydrates and complex carbohydrates R, : Lean protein foods including vegan , vegetarian sources of protein. Benefits of protein (including but not limited to healing, nutritional value , benefits in weight loss, glucose control R, : Fats : Source of fats, benefits of fats. Difference between saturated and unsaturated fats. Saturated fats and its contribution to inflammation. low fat cooking methods R, V, N/A: Fiber: food sources and role of fiber in the diet (including but not limited to its role as a prebiotic, benefits in constipation, role in IBS , role in glucose control and cholesterol level) R, : Hydration: role of hydration and prevention of dehydration or over hydration. Foods and water content. R, V, N/A: Vitamins and Minerals in foods and supplements R, : Interpreting food labels, including serving size, macronutrients, vitamins, minerals, allergens, ingredient list , % daily value Patient Instructions: Have 3 fruits a day, replacing pastries and empty calorie foods Coding Level of Care Code Nutr Indiv Subseq (30185) Diagnoses Morbid obesity E66.01 Time Spent (min) 15
== END 2025-03-03 12:11 | disposition home or self-care (01) ==
LOC: HO.ENCR 11:14
PROVIDERS: PCP Family Medicine; Visit Provider Dietitian, Registered
DX: E66.01 Morbid (severe) obesity due to excess calories (principal)

== ENCOUNTER → 2025-03-03 11:14 | Outpatient (BNVA) | payer MEDICARE, OTHER, MEDICAID, SELFPAY | PROVIDERS: PCP Family Medicine; Visit Provider Dietitian, Registered | DX: E66.01 Morbid (severe) obesity due to excess calories (principal) | CPT/HCPCS: 97803 ==

== ENCOUNTER 2025-03-11 10:20 | Outpatient (REF) | payer MEDICARE, OTHER, MEDICAID, SELFPAY ==
--- NOTE | ~2025-03-11 | US_ITS ---
EXAMINATION: US COMPLETE ABDOMEN WITH LIVER ELASTOGRAPHY CLINICAL INFORMATION: K74.60 - Unspecified cirrhosis of liver COMPARISON: MRI on September 18, 2019 TECHNIQUE: Real-time imaging of the abdominal viscera. Noninvasive ultrasound liver fibrosis assessment is performed using Jamil ElastPQ point quantification shear wave elastography (pSWE) with a C5-2 MHz transducer. Multiple elastography samples are obtained. FINDINGS: PANCREAS: The visualized pancreatic head and body are normal in appearance. The remainder of the pancreas is obscured from visualization by the overlying bowel gas. ABDOMINAL AORTA: No aortic aneurysm is seen. INFERIOR VENA CAVA: Visualized portions are normal. LIVER: The liver demonstrates normal size, contour and echogenicity. No focal lesion or intrahepatic biliary duct dilatation. The right lobe measures 14 cm in length. The left lobe measures 8 cm in length. The main portal vein is patent with a normal direction of flow and a continuous venous waveform. Shear wave liver elastography median stiffness is 1.45 m/s (reference: normal median stiffness is 1.3 m/s or less). IQR/median stiffness to assess sampling precision is 0.3 (reference: good quality data set is IQR/median stiffness of 0.15 or less). GALLBLADDER: The gallbladder is surgically absent. COMMON BILE DUCT: Normal in caliber measuring 8-10 mm in diameter, previously 8 millimeters. RIGHT KIDNEY: No hydronephrosis. No renal calculi or focal parenchymal lesions. The kidney measures 11 cm in maximum dimension. LEFT KIDNEY: No hydronephrosis. No renal calculi or focal parenchymal lesions. The kidney measures 10 cm in maximum dimension. SPLEEN: Unremarkable. The spleen measures 10 cm in maximum dimension. FREE FLUID: None seen. US/US abdomen comp w elastography IMPRESSION: Persistent extrahepatic biliary ductal dilation status post cholecystectomy is similar to the prior study 5 years ago. 2. Liver elastography: Although measurements appear to rule out compensated advanced chronic liver disease, there is statistical variability of the sampling which decreases accuracy. The ultrasound appearance of the liver is within normal limits. REFERENCE: Society of Radiologists in Ultrasound Liver Stiffness Thresholds (2020): LIVER STIFFNESS THRESHOLDS: *Liver Stiffness equal or less than 1.3 m/s: High probability of being normal. *Liver Stiffness less than 1.7 m/s: In the absence of other known clinical signs, rules out compensated advanced chronic liver disease. *Liver Stiffness 1.7-2.1 m/s: Suggestive of compensated advanced chronic liver disease but need further test for confirmation. *Liver Stiffness over 2.1 m/s: Rules in compensated advanced chronic liver disease. *Liver Stiffness over 2.4 m/s: Suggestive of clinically significant portal hypertension. QUALITY OF DATA SET: *IQR/Median value equal or less than 0.15 implies a quality data set. *IQR/Median value over 0.15 implies a poor quality data set. SIGNIFICANT CHANGE FROM PRIOR EXAM: Significant change if liver stiffness measurement is 10% or greater from prior exam. OTHER CONSIDERATIONS: The stage of liver fibrosis may be overestimated in the setting of acute hepatitis, liver inflammation, elevated liver function tests, hepatic vascular congestion, obstructive cholestasis, non-fasting state, and infiltrative diseases such as amyloidosis and lymphoma. In some patients with NAFLD, the liver stiffness thresholds for compensated advanced chronic liver disease may be lower. In causes other than viral hepatitis and NAFLD, liver stiffness thresholds are not well established. Electronically signed by: Marty Kohler MD 03/11/2025 11:01 AM DARIN[facility]
--- OUTSIDE RECORDS SUMMARY | 2025-03-11 12:14 | XMS_ITS | Encounter Summary ---
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
--- OUTSIDE RECORDS SUMMARY | 2025-03-11 12:14 | XMS_ITS | Clinical Summary ---
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
== END 2025-03-11 10:21 | disposition home or self-care (01) ==
LOC: HO.US 10:20
PROVIDERS: PCP Family Medicine; Visit Provider Internal Medicine Gastroenterology
DX: K74.60 Unspecified cirrhosis of liver (principal)
CPT/HCPCS: 76700; 76981

== ENCOUNTER → 2025-03-11 10:21 | Outpatient (BNV) | payer MEDICARE, OTHER, MEDICAID, SELFPAY | PROVIDERS: PCP Family Medicine; Visit Provider Radiology Diagnostic Radiology | DX: K74.60 Unspecified cirrhosis of liver (principal) | CPT/HCPCS: 76700 ==

== ENCOUNTER 2025-03-13 13:11 | Outpatient (AMB) | payer MEDICARE, OTHER, MEDICAID, SELFPAY ==
--- OUTSIDE RECORDS SUMMARY | 2025-03-07 23:59 | XMS_ITS | Continuity of Care Document ---
Author Organization [facility] Address [address] [place] [address]- [facility] Name Relationship Address Phone FLASH STEPHENSON Personal Relationship Unknown Phyllis vailable DESLIPPE, JESSICA spouse Unknown Unavailabl e DESLIPPE, JESSICA Personal Relationship Unknown U navailable DESPLIPPE, JESSICA Personal Relationship Unknown Unavailable DESLIPPE, JESSICA Personal Relationship Unknown U navailable DESLIPPE, JESSICA Personal Relationship Unknown U navailable DESLIPPE, JESSICA Personal Relationship Unknown U navailable ORZULAK, NINO child Unknown Unavailable DESLIPPE, JESSICA Personal Relationship Unknown U navailable DESLIPPE, JESSICA Personal Relationship Unknown U navailable DESLIPPE, JESSICA Personal Relationship Unknown U navailable ANTON, BECCA sibling Unknown Unavailable DESLIPPE, JESSICA Personal Relationship Unknown U navailable DESLIPEE, D Personal Relationship Unknown Unavai lable DESLIPPE, JESSICA Other Unknown Unavailabl e DESLIPPE, FLASH Personal Relationship Unknown Phyllis vailable DESLIPEE, JESSICA Personal Relationship Unknown U navailable Care Team Providers 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 Role Phone Fartun [place], Margie Soares Primary Care Physician Encounter [facility] [[email or web address]] [id number] Date(s): 02/05/25 - 03/07/25 [facility] [address] [address]- Encounter Type: Triage Allergies, Adverse Reactions, Alerts Substance Criticality Severity Reaction Reaction Severity Status tetracycline Active sulfADIAZINE Active oxyCODONE Unable to assess criticality Persistent Mild Itchy Active cortisone 1 Low criticality Mild Ac tive morphine Unable to assess criticality Persistent Moderate Vomiting Active 1gives her flu like symptoms for a week Immunizations Given and Recorded Vaccine Date Status Refusal Reason influenza virus vaccine, inactivated 01/05/25 Ty rded influenza virus vaccine, inactivated 01/28/24 Ty rded influenza virus vaccine, inactivated 01/26/23 Ty rded influenza virus vaccine, inactivated 02/27/22 Ty rded influenza virus vaccine, inactivated 01/15/21 Ty rded influenza virus vaccine, inactivated 01/25/20 Ty rded influenza virus vaccine, inactivated 02/05/19 Ty rded influenza virus vaccine, inactivated 02/26/18 Ty rded influenza virus vaccine, inactivated 01/31/18 Ty rded influenza virus vaccine, inactivated 1 02/27/17 Re corded influenza virus vaccine, inactivated 02/02/17 Ty rded influenza virus vaccine, inactivated 2 05/12/14 [facility] SARS-CoV-2(COVID-19)mRNA-LNP vac([id number]) 01/05/25 Recorded SARS-CoV-2(COVID-19)mRNA-LNP vac([id number]) 06/26/24 Recorded pneumococcal 21-valent conjugate vaccine 11/04/24 Recorded tetanus/diphtheria/pertussis, acel(Tdap) 11/04/24 Recorded tetanus/diphtheria/pertussis, acel(Tdap) 03/16/17 Given SARS-CoV-2(COVID-19)mRNA-LNP vac([id number]) 01/30/23 Recorded RSV vaccine preF3, recombinant 01/15/23 Recorded [id number] bivalent booster vax 02/01/22 Recorded SARS-CoV-2 (COVID-19) mRNA-1273 vaccine 09/02/21 R ecorded SARS-CoV-2 (COVID-19) mRNA-1273 vaccine 04/01/21 R ecorded SARS-CoV-2 (COVID-19) mRNA-1273 vaccine 09/17/20 R ecorded SARS-CoV-2 (COVID-19) mRNA-1273 vaccine 08/20/20 R ecorded zoster vaccine, inactivated 01/25/20 Recorded Influenza Virus Vaccine (oldterm) 02/03/19 Recorde d Influenza Virus Vaccine (oldterm) 3 06/05/13 Given pneumococcal 23-valent vaccine 07/22/18 Recorded Diphth/Pertussis,Acel/Tetanus (oldterm) 01/15/07 G iven 1Location History: [facility] 2Admin Note: declined 3Admin Note: declined Medications (Vitamin D3) Cholecalciferol 400 SENIOR CARE units/mL oral syringe 1 mL = 10 mcg, By Mouth, Daily, 0 Refills, Maintenance, 07/28/22 3:18:00 PM EDT, Partial fill upon patient request if the prescription is for a schedule II opioid drug. Start Date: 07/28/22 Status: Ordered Medication Dispense Status: Completed Total Allowed Fills: 1 Fills Dispensed: 0 atorvastatin 10 mg oral tablet 1 tablet, By Mouth, Daily, # 90 tablet, 1 Refills, Maintenance, 01/27/25 2:53:00 PM EDT, [facility]/pharmacy #[id number], 163, cm, 01/27/25 14:39:00 EDT, Height Start Date: 01/27/25 Status: Ordered Medication Dispense Status: Completed Quantity: 90.0 Unit: tablet Total Allowed Fills: 2 Fills Dispensed: 0 B-Complex with B-12 oral tablet 1 tablet, By Mouth, Daily, # 100 tablet, 0 Refills, Maintenance, 07/28/22 3:19:00 PM EDT, Tablet, Partial fill upon patient request if the prescription is for a schedule II opioid drug. Start Date: 07/28/22 Status: Ordered Medication Dispense Status: Completed Quantity: 100.0 Unit: tablet Total Allowed Fills: 1 Fills Dispensed: 0 CeleBREX 200 mg oral capsule 1 capsule = 200 mg, By Mouth, Daily, Take 1 capsule daily with food as needed for lower back pain, # 30 capsule, 3 Refills, Maintenance, 02/04/25 5:01:00 PM EDT, [facility]/pharmacy #[id number], Partial fill upon patient request if the prescription is for a schedule II opioid drug., 163, cm, 02/04/25 16:42:00 EDT, Height Start Date: 02/04/25 Status: Ordered Medication Dispense Status: Completed Quantity: 30.0 Unit: capsule Total Allowed Fills: 4 Fills Dispensed: 0 CONTOUR NEXT STRIPS Strip CONTOUR NEXT STRIPS Strip, See Instructions, # 50 Unknown, 11 Refills, Maintenance, USE TO TEST BLOOD SUGAR TWICE DAILY, 04/15/24 8:50:00 AM EST, 163, cm, 04/14/24 14:35:00 EST, Height, 119.3, kg, 10/19/22 14:52:00 EDT, Dry Weight Start Date: 04/15/24 Status: Ordered Medication Dispense Status: Completed Quantity: 50.0 Unit: Unknown Total Allowed Fills: 1 Fills Dispensed: 0 Fish Oil 500 mg oral capsule 1 capsule = 500 mg, By Mouth, Daily, # 90 capsule, 3 Refills, Maintenance, 05/24/25 11:45:00 AM EST,Capsule, [facility]/pharmacy #[id number], Partial fill upon patient request if the prescription is for a schedule II opioid drug., 163, cm, 01/27/25 14:39:00 EDT, Height Start Date: 05/24/25 Stop Date: 05/19/26 Status: Ordered Medication Dispense Status: Completed Quantity: 90.0 Unit: capsule Total Allowed Fills: 4 Fills Dispensed: 0 Fish Oil 500 mg oral capsule 1 capsule = 500 mg, By Mouth, Daily, for 90 days, # 90 capsule, 3 Refills, Hard Stop 05/24/25 11:45:00 AM EST, 05/29/24 11:45:00 AM EST, Capsule, [facility]/pharmacy #[id number], Partial fill upon patient request if the prescription is for a schedule II opioid drug., 163, cm, 05/16/24 13:44:00 EST, Height, 119.3,kg, 10/19/22 14:52:00 EDT, Dry Weight Start Date: 05/29/24 Stop Date: 05/24/25 Status: Ordered Medication Dispense Status: Completed Quantity: 90.0 Unit: capsule Total Allowed Fills: 4 Fills Dispensed: 0 lisinopril 10 mg oral tablet 1, tablet, By Mouth, Daily, # 90 tablet, Refills 3, Tot. Refills 3, Maintenance, 01/27/25 2:52:00 PMEDT, Route to Pharmacy Electronically, [facility]/pharmacy #[id number], 163, cm, 01/27/25 14:39:00 EDT, Height Start Date: 01/27/25 Status: Ordered Medication Dispense Status: Completed Quantity: 90.0 Unit: tablet Total Allowed Fills: 4 Fills Dispensed: 0 metFORMIN 500 mg oral tablet See Instructions, TAKE 1 TABLET BY MOUTH in the AM, 1 tablet in the PM dx: Dm2, # 180 tablet, 3 Refills, Maintenance, 09/25/24 2:47:00 PM EDT, [facility]/pharmacy #[id number], 163, cm, 09/25/24 14:40:00 EDT, Height, 119.3, kg, 10/19/22 14:52:00 EDT, Dry Weight Start Date: 09/25/24 Status: Ordered Medication Dispense Status: Completed Quantity: 180.0 Unit: tablet Total Allowed Fills: 4 Fills Dispensed: 0 Mounjaro 10 mg/0.5 mL subcutaneous solution = 10 mg, Subcutaneous Injection, Every week, rotate injection sites Dx: DM2, obesity, # 4 each, 2 Refills, Maintenance, 01/27/25 2:56:00 PM EDT, Solution, [id number], Partial fill upon patientrequest if the prescription is for a schedule II opioid drug., 163, cm, 01/27/25 14:39:00 EDT, Height Start Date: 01/27/25 Status: Ordered Medication Dispense Status: Completed Quantity: 4.0 Unit: each Total Allowed Fills: 3 Fills Dispensed: 0 One Touch Delica Lancing System See Instructions, # 200 each, Refills 5, Tot. Refills 5, Maintenance, dx: DM2 use twice daily, 07/28/22 3:37:00 PM EDT, Supply, 163, cm, 07/28/22 15:14:00 EDT, Height Start Date: 07/28/22 Status: Ordered Medication Dispense Status: Completed Quantity: 200.0 Unit: each Total Allowed Fills: 6 Fills Dispensed: 0 One Touch Ultra 2 Glucose Meter See Instructions, # 1 each, Refills 5, Tot. Refills 5, Maintenance, uuse twice daily dx: Dm2, 07/28/22 3:36:00 PM EDT, Supply, 163, cm, 07/28/22 15:14:00 EDT, Height Start Date: 07/28/22 Status: Ordered Medication Dispense Status: Completed Quantity: 1.0 Unit: each Total Allowed Fills: 6 Fills Dispensed: 0 One Touch Ultra Test Strips See Instructions, # 200 each, Refills 5, Tot. Refills 5, Maintenance, use twice daily for Type 2 Diabetes Mellitus, 03/21/24 3:19:00 PM EST, Supply, 163, cm, 03/21/24 15:05:00 EST, Height, 119.3, kg,10/19/22 14:52:00 EDT, Dry Weight Start Date: 03/21/24 Stop Date: 09/17/24 Status: Ordered Medication Dispense Status: Completed Quantity: 200.0 Unit: each Total Allowed Fills: 6 Fills Dispensed: 0 pentoxifylline 400 mg oral tablet, extended release See Instructions, TAKE 1 TABLET BY MOUTH DAILY, # 90 tablet, Refills 3, Tot. Refills 3, Maintenance, 01/27/25 2:54:00 PM EDT, Instructions Replace Required Details, Route to Pharmacy Electronically, [facility]/pharmacy #[id number], 163, cm, 01/27/25 14:39:00 EDT, Height Start Date: 01/27/25 Status: Ordered Medication Dispense Status: Completed Quantity: 90.0 Unit: tablet Total Allowed Fills: 4 Fills Dispensed: 0 SEROquel 25 mg oral tablet 25 mg, 1, tablet, By Mouth, Daily, occassional PRN for sleep, # 90 tablet, Refills 0, Tot. Refills 0, Maintenance, 12/31/24 4:46:00 PM EDT, Route to Pharmacy Electronically, [facility]/pharmacy #[id number], 90 day supply, 163, cm, 09/25/24 14:40:00 EDT, Height Start Date: 12/31/24 Stop Date: 03/31/25 Status: Ordered Medication Dispense Status: Completed Quantity: 90.0 Unit: tablet Total Allowed Fills: 1 Fills Dispensed: 0 Problem List Condition Confirmation Course Effective Dates Status Health Status Informant Acute bacterial sinusitis Confirmed Active Adjustment disorder with mixed anxiety and depressed mood Confirmed Active Allergic rhinitis Confirmed Active Benign essential hypertension Confirmed Active Chronic hyperglycemia Confirmed Active Chronic sinusitis Confirmed Active Erythrocytosis Confirmed Active Hypercholesteremia Confirmed Active Hyperglycemia Confirmed Active Morbid obesity Confirmed Active YAKOV (obstructive sleep apnea) Confirmed Active Localized osteoarthritis of left knee Confirmed Active Pancreatitis Confirmed Active Emphysema lung Confirmed Active Severe obesity (BMI 35.0-39.9) with comorbidity Confirmed Active Sjogren's syndrome Confirmed Active Tachycardia Confirmed Active Tobacco abuse Confirmed Active Social History Social History Type Response Smoking Status Former smoker, quit more than 30 days ago entered on: 07/28/22 Sexual Orientation Self described orien tation: ; Straight or heterosexual Sex Sex Representation Female (finding) Patient Care team information Care Team Personnel Name: Margie Willoughby MD Position: S Physician - Primary Care Member Role: PCP Address: [address] [place] [address] Adult [place] [address]- Telecom: Name: Elisabeth Keita MA Position: [facility] Office Staff Member Role: Primary Care Nurse Care Team Related Persons Name: JESSICA STEPHENSON Name: BECCA ANTON Name: NINO CURRY Insurance Providers Guarantor name: FLASH STEPHENSON Health Plan Information #: 1 Payer: MEDICARE B Payer Identifier: NA Member Number: [id number] Group Number: NA Subscriber Identifier: NA Relationship to Subscriber: self Coverage Type: NA Coverage Verification Date: NA Telecom: NA Address: NA Health Plan Information #: 2 Payer: [facility] Payer Identifier: NA Member Number: [id number] Group Number: [id number] Subscriber Identifier: NA Relationship to Subscriber: spouse Coverage Type: NA Coverage Verification Date: NA Telecom: NA Address: NA Health Plan Information #: 3 [facility] [employer] Payer Identifier: NA Member Number: [id number] Group Number: NA Subscriber Identifier: NA Relationship to Subscriber: self Coverage Type: MEDICAID Coverage Verification Date: NA Telecom: NA Address: NA
[2025-03-13 13:21] VITALS: BP 141/85; PULSE 85; O2SAT 99; BMI 35.1
--- NOTE | 2025-03-13 13:21 | A.OFFVIS_ITS ---
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 Accompanied by: Self / Same As Patient Allergies tetracycline (TETRACYCLINE) Allergy (Severe, Verified 01/23/25 14:19) SYNCOPE, faintning spells cortisone Adverse Reaction (Intermediate, Verified 03/13/25 13:42) Blurry Vision oxycodone Adverse Reaction (Intermediate, Verified 01/23/25 14:19) Stomach Upset Sulfa (Sulfonamide Antibiotics) (SULFA (SULFONAMIDE ANTIBIOTICS)) Adverse Reaction (Unknown, Verified 01/23/25 14:19) VOMITING morphine Adverse Reaction (Verified 01/23/25 14:19) Vomiting HPI Comments Details: The patient is a 64-year-old female presenting with chronic pain management related to arthritis and sacroiliitis. The patient reports ongoing pain primarily in the lower back and hips, which has been persistent and impacts her daily activities. She has been undergoing physical therapy, which she continues to attend, and takes meloxicam daily to manage the pain. The patient has a history of mild scoliosis and multilevel spinal arthritis, particularly at L4-L5 and L5-S1, which contributes to her pain. She also has arthritis in her hips, described as mild to moderate, and sacroiliitis, which was confirmed through imaging. The patient has been advised by her other providers to discontinue meloxicam due to liver disease and potential adverse effects, including gastrointestinal bleeding and cardiovascular risks. She is able to have complete pain relief when taking daily meloxicam, and without it her pain reaches to 8/10 with daily activities and walking. The patient has a documented allergy to cortisone, which limits some treatment options. The patient has lost significant weight, which has helped alleviate some of her symptoms. She is interested to undergo diagnostic lumbar injections for axial low back pain for potential radiofrequency ablation or peripheral nerve stimulation for a longer pain management. PRIOR: The patient is a 64-year-old female presenting with back pain suspected to be due to spinal stenosis. The back pain started a couple of years ago, with no specific injury reported, although the patient has lost 2.5 inches in height. The pain is localized to the midline, more towards the coccyx and sacrum, and does not radiate to the legs. The patient reports that the pain is constant and affects her ability to stand for prolonged periods, such as cooking a full meal. Walking downhill exacerbates the pain, while walking uphill is manageable. She uses a U-shaped cushion for sitting and walks five miles a day, which is hindered without meloxicam. The patient has a history of knee pain, which was previously treated with injections, providing relief for over two years. The knee pain has returned but is less severe than before, and meloxicam helps manage it. The patient has liver disease, Sjogren's syndrome, and probable autoimmune hepatitis, which complicates her medication regimen. She has been advised to discontinue meloxicam due to potential liver damage and cardiovascular risks. - Onset: Pain began a couple of years ago. - Quality: Described as constant, sharp, cutting, dull, sore, aching, and heavy. - Location: Midline, more towards the coccyx and sacrum. - Radiation: Does not radiate to the legs. - Exacerbating factors: Walking downhill, standing for long periods. - Relieving factors: Walking uphill, use of meloxicam. - Interference: Affects ability to cook, walk, and perform daily activities. - Affect: Pain impacts daily activities and functioning, including cooking and walking. - Analgesia: Currently using meloxicam, which helps manage pain but needs to be discontinued due to liver disease. - Adverse Effects: Potential liver damage and cardiovascular risks from meloxicam. - Activities of Daily Living: Pain affects ability to perform daily tasks and exercise. - Aberrant Drug Related Behaviors: None reported. Past Procedures: 03/08/21: Left diagnostic genicular nerve block- 90% pain relief for the 1st 7 hours after the injection PRIOR Dr. Franklin 03/16/21: Suze is a pleasant 60 years old female who presents in my office with complains on pain in the left knee. She reports that she was under care of [facility] for many years. She was diagnosed with meniscal tear about 7 years ago. Somehow all the surgery for meniscal tear repair was not performe d. She was receiving steroid injections in the knee. She was diagnosed with significant left knee osteoarthritis. The last conclusion was done by [facility] that she is a poor candidate for joint replacement surgery because she is morbidly obese and does not have [id number]-ew-qbuh arthritis. I performed diagnostic genicular nerve block on 03/08/2021 she reports significant up to 90 % pain relief for the 1st 7 hours after the injection. She still reports the week after injection about 50% of the pain relief. She still reports better mobility with her left knee. Radiofrequency ablation versus peripheral nerve stimulation was discussed today. I explained to her the difference. She wants to proceed with peripheral nerve stimulation. -she needs to go for psychological evaluation. This will be scheduled today. I also need to perform mapping injection now injecting only infrapatellar saphenous nerve for this patient. She had multiple images studies with orthopedic surgeries. She adamantly refused to go to physical therapy. She is getting engage into aerobic exercise sitting in a reclined stationary bicycle. She is using topical medications [id number]-zcl-soyftki to help her pain. She was under care of [facility] pain management in the order to perform radiofrequency ablation. However radiofrequency ablation was declined later on. She never tried chiropractic manipulations or massage therapy. [facility] Medical History (Updated 03/13/25 @ 15:35 by ALEXANDER Garland) History of kidney infection Morbid obesity Osteoarthritis of left knee Surgical History (Updated 01/09/25 @ 11:36 by CHACHO Ling) Hx of colonoscopy History of esophagogastroduodenoscopy (EGD) History of kidney surgery History of partial hysterectomy Hx laparoscopic cholecystectomy Social History Alcohol intake: never Patient Tobacco Use Status: Never used Tobacco Second Hand Smoke Exposure: No Current occupational status: unemployed and retired Current occupation: right handed Review of Systems Const All systems reviewed & are unremarkable except as noted in HPI and below Physical Exam Vital Signs: Last Vital Signs Pulse 85 03/13/25 13:21 BP 141/85 H 03/13/25 13:21 Pulse Ox 99 03/13/25 13:21 Oxygen Delivery Method Room Air 03/13/25 13:21 BMI result Body Mass Index 35.1 General: Appears afebrile. Alert and oriented. Mood and affect appropriate. Follows and participates in conversation appropriately. Respiratory effort is unlabored. No cough. Able to transition from sit to stand unassisted. Ambulates with bilaterally normal heel strike and toe off. General: Yes no CVA tenderness Back/Spine/Pelvis Other: Demonstrates 5/5 strength of quadriceps bilaterally as well as flexion/dorsiflexion of bilateral feet against resistance. 2+ pedal pulses bilaterally. Straight leg rise with dorsiflexion negative bilaterally. +2 patellar and achilles reflexes bilaterally. Facet loading test positive bilaterally. Carlos?s, Pelvic compression and Stinchfield tests are positive bilaterally. No groin pain with I/E hip rotations. Valsalva maneuver negative. Back: no CVA tenderness Cervical Spine: normal cervical lordosis, cervical ROM normal and No Cervical spine tenderness Thoracic/Lumbar Spine: thoracic and lumbar spine normal to inspection, No Thoracic/lumbar spine scar(s), Lasegue's sign negative, straight leg raise negative bilaterally, pain with thoraco-lumbar ROM, No thoracic spinal tenderness and lumbar spinal tenderness (L4-S1) Sacroiliac joints: bilaterally (lateral hip) tender to palpation Extrem General: Yes capillary refill normal, Yes no clubbing, cyanosis or edema and Yes no calf tenderness Results Reviewed Results Reviewed: XR LUMBOSACRAL SPINE WITH OBLIQUES 01/23/25 CLINICAL INFORMATION: M54.50 - Low back pain, unspecified COMPARISON: Correlated to CT abdomen pelvis dated April 11, 2018. TECHNIQUE: AP oblique and lateral views. FINDINGS: Bilateral facet joint hypertrophy at L4-5 and L5-S1. Mild endplate sclerosis at multiple levels. Decreased intervertebral disc height at L5-S1. No acute cortical disruption or malalignment. Mild S-shaped curvature of the lower lumbar spine. Vascular clips right upper quadrant abdomen. IMPRESSION: Multilevel spondylosis pronounced at L4-5 and L5-S1 without acute fracture or gross listhesis. Mild scoliosis XR SACROILIAC JOINTS 01/23/25 CLINICAL INFORMATION: M53.3 - Sacrococcygeal disorders, not elsewhere classified COMPARISON: Correlated to CT abdomen pelvis dated July 21, 2018. TECHNIQUE: AP oblique views of the sacroiliac joints FINDINGS: No acute cortical disruption. Mild sclerosis and the inferior aspect of the sacroiliac joints. No lytic or blastic lesions. Spondylosis at L4-5 and L5-S1. Ryhs-ac-rgoqegjp degenerative changes in the coxofemoral joints and symphysis pubis. IMPRESSION: Mild sacroiliitis. XR SACRUM AND COCCYX 01/23/25 CLINICAL INFORMATION: M53.3 - Sacrococcygeal disorders, not elsewhere classified COMPARISON: Correlated to CT abdomen pelvis dated April 11, 2018. TECHNIQUE: AP and lateral views. FINDINGS: No acute cortical disruption. No lytic or blastic lesions. IMPRESSION: No acute fracture, sacrococcyx. Assessment & Plan Assessment & Plan (1) Chronic low back pain: Code(s): M54.50 - Low back pain, unspecified; G89.29 - Other chronic pain Category: Medical (2) Lumbar spondylosis: Code(s): M47.816 - Spondylosis without myelopathy or radiculopathy, lumbar region Category: Medical (3) Osteoarthritis of left knee: Code(s): M17.12 - Unilateral primary osteoarthritis, left knee Category: Medical (4) Sacroiliitis: Code(s): M46.1 - Sacroiliitis, not elsewhere classified Category: Medical Plan The plan involves discontinuing meloxicam due to the patient's liver disease and potential adverse effects, including gastrointestinal bleeding and cardiovascular risks. Diagnostic lumbar medial branch blocks at L3, L4, L5 with local and fluoroscopy are planned to confirm axial low back pain and determine the effectiveness of potential ablation or stimulation therapies. The patient is advised to remain active for at least six hours following the injections to accurately assess pain relief. Expectations, risks and benefits were reviewed. Patient is aware she will be contacted to schedule this procedure. The patient is encouraged to continue physical therapy to manage pain and maintain mobility. All questions and concerns have been answered and patient agreed with the treatment plan. Follow up after injections and sooner as needed. Patient was informed and verbally consented to the use of an ambient scribe for clinic note documentation during this visit. Coding Level of Care Code Est Pt Level 4 (68924) Complex EM visit Add On G2211 Diagnoses Chronic low back pain M54.50; G89.29 Lumbar spondylosis M47.816 Osteoarthritis of left knee M17.12 Sacroiliitis M46.1
--- OUTSIDE RECORDS SUMMARY | 2025-03-13 19:22 | XMS_ITS | Encounter Summary ---
Author Organization [employer] Address [address] [place] [address] [address] [place] [address] Care Team Providers Care Radiologic Technology Teacher Name Role Phone Unavailable Primary Care Provider Unavailabl e Reason for Visit * Reason Onset Date Comments returning call 01/28/2024 Encounter Details Date Type Department Care Team (Late st Contact Info) Description 01/28/2024 Telephone [facility] [address] [place] [address] Lisset Hager, BDS [address] [place] [address] returning call Social History Tobacco Use Types [...]
--- OUTSIDE RECORDS SUMMARY | 2025-03-13 19:22 | XMS_ITS | Clinical Summary ---
Author Organization [employer] Address [address] [place] [address] [address] [place] [address] Care Team Providers Care Preventive Medicine Physician Name Role Phone Unavailable Primary Care Provider [...] 09/21/2023 09/20/2020 Dental Oral Exam 12/06/2023 06/06/2023 COVID-19 Vaccine ( season) 2024 06/26/2024, 01/30/2023, 02/01/2022, Additional history exists Influenza Vaccine (#1) 2024 , 01/26/2023, 01/26/2023, Additional history exists Tobacco Screening 07/21/2025 07/21/2024 Dental X-Ray: Full Mouth 06/07/2026 06/06/2023 DTaP/Tdap/Td Vaccines (3 - Td or Tdap) 03/16/2027 03/16/2017, 01/15/2007 RSV Patients and Patients Aged 60 years or older Completed 01/15/2023 HIB Vaccines Aged Out No longer eligi [...]
== END 2025-03-13 14:12 | disposition home or self-care (01) ==
LOC: HO.PMC 13:12
PROVIDERS: PCP Family Medicine; Visit Provider Nurse Practitioner Family
DX: M54.50 Low back pain, unspecified (principal); G89.29 Other chronic pain; M47.816 Spondylosis without myelopathy or radiculopathy, lumbar region; M17.12 Unilateral primary osteoarthritis, left knee; M46.1 Sacroiliitis, not elsewhere classified
CPT/HCPCS: 99214; G2211

== ENCOUNTER → 2025-03-13 13:11 | Outpatient (BNVA) | payer MEDICARE, OTHER, MEDICAID, SELFPAY | PROVIDERS: PCP Family Medicine; Visit Provider Nurse Practitioner Family | DX: M54.50 Low back pain, unspecified (principal); G89.29 Other chronic pain; M47.816 Spondylosis without myelopathy or radiculopathy, lumbar region; M17.12 Unilateral primary osteoarthritis, left knee; M46.1 Sacroiliitis, not elsewhere classified; M35.00 Sjogren syndrome, unspecified | CPT/HCPCS: 99212 ==